=== PATIENT | female | born 1970 | race Caucasian/White ===

== ENCOUNTER 2016-03-18 15:28 | Emergency (ER) | payer OTHER ==
[~2016-03-18] VITALS: Ht 160 cm; Wt 54.1 kg
[~2016-03-18 15:28] MED LIST: ALBUAER19 INH
[2016-03-18 15:46] VITALS: TEMP 36.9; Ht 160 cm; Wt 54.1 kg
[2016-03-18] MEDS ORDERED: PROPARACAINE HCL 0.5% OP SOLN 15 ML BTL ONE (15:52)
[2016-03-18] MEDS ORDERED: HYDR-5688 PO (16:37)
[2016-03-18] MEDS ORDERED: CIPR0.3S OPB (16:37)
[2016-03-18] MEDS ORDERED: AMOX875T PO (16:37)
[2016-03-18 17:03] VITALS: BP 97/48; PULSE 80; O2SAT 95
--- NOTE | 2016-03-18 19:18 | EMERGENCY ROOM VISIT NOTE ---
History First contact with patient: 16:19 Chief Complaint: EYE ASSESSMENT Stated Complaint: EYES SWOLLEN History of Present Illness The patient is a 45 year old female who presents to the Emergency Room with complaints of pink eye that started approximately 48-72 hours ago. The patient reports that she developed redness and purulent drainage from the right eye. It then spread to the left eye. She was seen at [facility], and was told that her infection was likely viral. No antibiotic eyedrops were prescribed. The patient reports that she has been applying cool compresses or further relief, but now reports significant photophobia and eye discomfort, left worse than right. The patient does not wear contacts. She has been taking Ativan because of anxiety related to her pain. She has taken Tylenol as well without relief. She denies having any additional pain medications at home. She rates her discomfort a 3 out of 10. Patient also denies any recent upper respiratory infection, including sinus congestion, runny nose, sore throat or cough. She also denies contact with anyone else with similar symptoms. Review of Systems 10 system review was performed and was negative except for pertinent positives and negatives as indicated in history of present illness Past Medical/Surgical History Medical Problems: (1) Asthma (2) Back pain (3) Bronchitis (4) Migraine (5) Pneumonia Surgical Problems: (1) H/O: (2) H/O: hysterectomy Family History Diabetes mellitus FHx: gallbladder disease Social History Smoking Status: Current Every Day Smoker Alcohol Use: occasionally Drug Use: none Marital Status: Housing Status: lives alone Occupation Status: employed Current/Historical Medications Scheduled Amitriptyline Hcl (Elavil), 50 MG PO HS Amoxicillin & Pot Clavulanate (Augmentin 875-125 mg), 1 TAB PO BID Ciprofloxacin Hcl (Ophth) (Ciloxan Oph), 2 DROP OPB Q4H Citalopram Hydrobromide (Celexa), 10 MG PO DAILY Montelukast Sodium (Singulair), 10 MG PO QAM Topiramate (Topamax), 100 MG PO BID Scheduled PRN Albuterol Inhaler (Ventolin Inhaler), 2 PUFFS INH UD PRN for Asthma Symptoms Cetirizine (Zyrtec), 10 MG PO DAILY PRN for Allergies Clonazepam (Klonopin), 1 MG PO DAILY PRN for Anxiety Diphenhydramine Hcl (Benadryl Allergy), 25-50 MG PO HS PRN for Allergies Hydrocodone/Acetaminophen 5MG/325MG (Fincastle 5MG/325MG), 1-2 TABLET PO Q4H PRN for Pain Ibuprofen (Advil), 400 MG PO BID PRN for PRN Ranitidine (Zantac), 300 MG PO HS PRN for Indigestion Rizatriptan Benzoate (Maxalt), 10 MG PO UD PRN for Headache Allergies Coded Allergies: Shellfish (Unverified Allergy, Severe, SWELLING THROAT AND EYES AND HIVES , 03/18/16) Pseudoephedrine (Verified Allergy, Intermediate, rash, 03/18/16) Physical Exam Vital Signs Date Time Temp Pulse Resp B/P Pulse Ox O2 Delivery O2 Flow Rate FiO2 03/18/16 17:03 80 16 97/48 95 Room Air 03/18/16 15:46 36.9 106 20 99/50 100 Room Air Right Eye Acuity: >20/200 uncorrected Left Eye Acuity: >20/200 uncorrected Physical Exam CONSTITUTIONAL: Healthy and well nourished. Alert and oriented X 3 with positive affect. HEENT: Normocephalic, atraumatic. Pupils equal, round and reactive. Patient has mild periorbital erythema. EOMs do not cause any significant discomfort after Alcaine drops were instilled into the eye. She has mild bilateral mucopurulent drainage from the eyes. Palpebral conjunctiva are injected. Ears and nares are clear. OROPHARYNX: No posterior pharyngeal erythema or tonsillar hypertrophy. NECK: Full active range of motion without discomfort. RESPIRATORY: Clear to auscultation bilaterally with no wheezing, crackles, rhonchi or stridor. CARDIOVASCULAR: Regular rate and rhythm with no murmurs, rubs or gallops. INTEGUMENTARY: No rash or other significant dermatologic conditions noted. NEUROLOGIC: Cranial nerves II-XII grossly intact. No focal neurologic deficits noted. Medical Decision & Procedures Medications Administered Medications (Trade) Dose Ordered Sig/Tremayne Route Start Time Stop Time Status Last Admin Dose Admin Proparacaine HCl (Alcaine 0.5% Oph Soln) 225 drops STK-MED ONCE .ROUTE 03/18/16 15:52 03/18/16 15:53 DC 03/18/16 15:52 225 DROPS Procedure The patient could not tolerate slit lamp exam. 2 drops of Alcaine were instilled into each eye with good relief. I did use a fluorescein strip and black light, and did not notice any corneal abrasions, lesions or ulcers. ED Course Patient history and physical exam were performed. Nurse's notes were reviewed. The patient reports that her vision is blurry because of all the drainage from her eyes. 2 drops of Alcaine were instilled into both eyes with almost complete resolution of her pain, except for minimal persistent left eye discomfort with extraocular movements. The patient could not tolerate slit lamp exam because of photophobia. I was able to adequately evaluate the eye using fluorescein dye and penlight with a cobalt filter, showing no significant corneal involvement. The patient was provided prescriptions for Ciloxan and Augmentin. She also requested additional pain medication. The patient reports that she does not have any medications at home; however, review of the [place] Prescription Drug Monitoring Program shows that the patient received a prescription for #30 Fincastle on 03/07/16, prescribed by Dr. Weaver. I did ask the patient about this prescription, and she reports that she has already taken this medication for history of migraines. The patient was instructed that she must be forthcoming with any future visits. She will be provided a prescription for Fincastle, dispensed #15 with no refills. She was instructed to follow-up with Dr. 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 The patient was happy with plan of care, and denied any pain at the conclusion of my exam. Medical Decision Patient presents with complaint of bilateral eye drainage and conjunctivitis. At this point, I do not suspect periorbital cellulitis. She did have some mild discomfort with left extraocular movement. She has no significant periorbital edema or erythema. She could potentially have early preseptal cellulitis, therefore oral antibiotics were also provided. [place] Drug Monitoring Program Search Results: patient reviewed within database, see additional documentation Impression Primary Impression: Acute conjunctivitis, bilateral Departure Information Dispostion Home / Self-Care Prescriptions Hydrocodone/Acetaminophen 5MG/325MG (Fincastle 5MG/325MG) Tab 1-2 TABLET PO Q4H Y for Pain, #15 TAB For Initial Treatment Prov: Jl Whatley PA 03/18/16 Ciprofloxacin Hcl (Ophth) (CILOXAN OPH) 0.3 % Anila 2 DROP OPB Q4H for 7 Days, #1 BTL Prov: Jl Whatley PA 03/18/16 Amoxicillin & Pot Clavulanate (Augmentin 875-125 mg) 1 Tab Tab 1 TAB PO BID for 7 Days, #14 TAB Prov: Jl Whatley PA 03/18/16 Referrals Cal Alcocer MD Forms HOME CARE DOCUMENTATION FORM, IMPORTANT VISIT INFORMATION Patient Instructions A Signature Page, [facility] Additional Instructions Apply Ciloxan 0.3%, 2 drops every 4 hours in each eye for 7 days total. Take Augmentin twice daily as prescribed for 7 days total. Intermittently apply moist heat to both eyes to help promote tear production. Ibuprofen 600 mg every 6 hours. Fincastle as prescribed and as needed for worse pain. Follow-up with Dr. Alcocer, shopper insights manager, if symptoms are not significantly improving within the next 36-48 hours. FOR WORK: Please excuse from work Friday through Friday, 03/18-07/01.
== END 2016-03-18 17:06 | disposition home or self-care (01) ==
LOC: C.EDB 15:30 → C.EDD 17:06
DX: H10.33 Unspecified acute conjunctivitis, bilateral (principal); F17.210 Nicotine dependence, cigarettes, uncomplicated; Z79.899 Other long term (current) drug therapy

== ENCOUNTER 2017-02-23 14:38 | Emergency (ER) | payer OTHER ==
[2017-02-23] VITALS (12 sets, daily range): BP systolic 96–111; BP diastolic 46–69; PULSE 77–91; TEMP 36.8; O2SAT 99–100; Ht 157.5 cm; Wt 58.3 kg
[~2017-02-23] VITALS: Ht 157.5 cm; Wt 58.3 kg
[2017-02-23] MEDS ORDERED: AMIT25TA9 PO (14:55)
[2017-02-23] MEDS ORDERED: TOPI100T20 PO (14:55)
[2017-02-23] MEDS ORDERED: KETOROLAC TROMETHAMINE 30 MG/ML VIAL IV STA (15:00)
[2017-02-23] MEDS ORDERED: CYCLOBENZAPRINE HCL 10 MG TAB PO STA (15:05)
--- NOTE | 2017-02-23 15:05 | EMERGENCY ROOM VISIT NOTE ---
History First contact with patient: 14:51 Chief Complaint: FACIAL PAIN/INJURY Stated Complaint: JAW LOCKS UP,MIGRAINE History of Present Illness The patient is a 46 year old female who presents to the Emergency Room via private vehicle with complaints of "jaw locks up, migraine". The patient states that she has a history of receiving Botox injections for her chronic migraines. She last received the injections in the forehead, shinto region in the occipital region 2 weeks ago. She was feeling well however she notes that at times her job will click right more than left. She states that over the past day now the right jaw has been walking to her mouth to a fully open position. It is quite painful causing her migraines to worsen. She rates the overall pain as an 8/10. She is not taking anything for the pain thus far. She does have associated chills feeling for the past few days but no fevers. She denies any redness over the injection sites. She does have a history of TMJ. Review of Systems A complete 10-point Review of Systems was discussed with the patient, with pertinent positives and negatives listed in the History of Present Illness. All remaining Review of Systems questions can be considered negative unless otherwise specified. Past Medical/Surgical History Medical Problems: (1) Asthma (2) Back pain (3) Bronchitis (4) Migraine (5) Pneumonia Surgical Problems: (1) H/O: (2) H/O: hysterectomy Family History Diabetes mellitus FHx: gallbladder disease Social History Smoking Status: Never Smoker Alcohol Use: occasionally Drug Use: none Marital Status: Housing Status: lives alone Occupation Status: employed Current/Historical Medications Scheduled Albuterol Hfa (Ventolin Hfa), 2 PUFFS INH Q6H Amitriptyline Hcl (Elavil), 50 MG PO HS Citalopram Hydrobromide (Celexa), 10 MG PO DAILY Montelukast Sodium (Singulair), 10 MG PO QAM Topiramate (Topamax), 100 MG PO BID Scheduled PRN Cetirizine (Zyrtec), 10 MG PO DAILY PRN for Allergies Clonazepam (Klonopin), 1 MG PO DAILY PRN for Anxiety Diphenhydramine Hcl (Benadryl Allergy), 25-50 MG PO HS PRN for Allergies Ibuprofen (Advil), 400 MG PO BID PRN for PRN Oxycodone Ir (Roxicodone Ir), 1-2 TAB PO Q4H PRN for Pain Ranitidine (Zantac), 300 MG PO HS PRN for Indigestion Rizatriptan Benzoate (Maxalt), 10 MG PO UD PRN for Headache Physical Exam Vital Signs Date Time Temp Pulse Resp B/P (MAP) Pulse Ox O2 Delivery O2 Flow Rate FiO2 02/23/17 18:27 79 16 104/46 99 Room Air 02/23/17 18:00 85 16 105/59 99 Room Air 02/23/17 17:45 77 16 99/55 99 Room Air 02/23/17 17:40 78 20 104/57 99 Room Air 02/23/17 17:35 91 22 99/58 100 Room Air 02/23/17 17:30 82 16 103/54 100 Room Air 02/23/17 17:26 80 16 103/53 100 Room Air 02/23/17 17:22 82 18 101/51 100 Room Air 02/23/17 17:18 83 10 96/55 100 Room Air 02/23/17 17:14 84 22 107/69 100 Nasal Cannula 4.0 02/23/17 17:06 82 16 116/61 100 Nasal Cannula 4.0 02/23/17 17:05 81 22 111/61 100 02/23/17 17:03 84 02/23/17 16:01 101 20 145/83 100 Room Air 02/23/17 14:46 36.8 99 18 126/76 99 Room Air Physical Exam VITAL SIGNS - Vital signs and nursing notes were reviewed. Stable, GENERAL -46-year-old female appearing her stated age who is in no acute distress. Communicates well with provider and answers questions appropriately. SKIN - Without rashes. No petechial rashes. The skin overlying the regions where she received the Botox injections is unremarkable. The TMJ region is unremarkable to inspection. HEAD - NC/AT. EYES - Sclera anicteric EARS - No deformities of external structures noted on gross examination bilaterally. NOSE - Midline and without cyanosis. No epistaxis or purulent drainage noted. MOUTH/OROPHARYNX - Without perioral cyanosis. NECK - Neck with FROM. Supple to palpation. No lymphadenopathy noted. No nuchal rigidity. LUNGS - Chest wall symmetric without accessory muscle use, intercostals retractions, or central cyanosis. Normal vesicular breath sounds CTA B/L. No wheezes, rales, or rhonchi appreciated. CARDIAC - RRR with S1/S2. No murmur, rubs, or gallops appreciated. NEUROLOGIC - Cranial nerves II through XII grossly intact. Sensory intact to light touch throughout. Patellar reflexes +2/4. PSYCH - A&O, and cooperates fully with examiner. Pt is very pleasant and interacts well with examiner. Medical Decision & Procedures Laboratory Results 02/23/17 15:20 Red Blood Count 4.53, Mean Corpuscular Volume 96.9, Mean Corpuscular Hemoglobin 34.0, Mean Corpuscular Hemoglobin Concent 35.1, Mean Platelet Volume 11.3, Neutrophils (%) (Auto) 77.4, Lymphocytes (%) (Auto) 14.2, Monocytes (%) (Auto) 7.5, Eosinophils (%) (Auto) 0.6, Basophils (%) (Auto) 0.1, Neutrophils # (Auto) 6.30, Lymphocytes # (Auto) 1.16, Monocytes # (Auto) 0.61, Eosinophils # (Auto) 0.05, Basophils # (Auto) 0.01 02/23/17 15:20 Test 02/23/17 15:20 White Blood Count 8.15 K/uL (4.8-10.8) Red Blood Count 4.53 M/uL (4.2-5.4) Hemoglobin 15.4 g/dL (12.0-16.0) Hematocrit 43.9 % (37-47) Mean Corpuscular Volume 96.9 fL (80-100) Mean Corpuscular Hemoglobin 34.0 pg (25-34) Mean Corpuscular Hemoglobin Concent 35.1 g/dl (32-36) Platelet Count 175 K/uL (130-400) Mean Platelet Volume 11.3 fL (7.4-10.4) Neutrophils (%) (Auto) 77.4 % Lymphocytes (%) (Auto) 14.2 % Monocytes (%) (Auto) 7.5 % Eosinophils (%) (Auto) 0.6 % Basophils (%) (Auto) 0.1 % Neutrophils # (Auto) 6.30 K/uL (1.4-6.5) Lymphocytes # (Auto) 1.16 K/uL (1.2-3.4) Monocytes # (Auto) 0.61 K/uL (0.11-0.59) Eosinophils # (Auto) 0.05 K/uL (0-0.5) Basophils # (Auto) 0.01 K/uL (0-0.2) RDW Standard Deviation 44.1 fL (36.4-46.3) RDW Coefficient of Variation 12.5 % (11.5-14.5) Immature Granulocyte % (Auto) 0.2 % Immature Granulocyte # (Auto) 0.02 K/uL (0.00-0.02) Anion Gap 9.0 mmol/L (3-11) Est Creatinine Clear Calc Drug Dose 61.1 ml/min Estimated GFR () 86.6 Estimated GFR (Non- 74.7 BUN/Creatinine Ratio 8.8 (10-20) Calcium Level 9.1 mg/dl (8.5-10.1) Medications Administered Medications (Trade) Dose Ordered Sig/Tremayne Route Start Time Stop Time Status Last Admin Dose Admin Ketorolac Tromethamine (Toradol Inj) 30 mg NOW STAT IV 02/23/17 15:00 02/23/17 15:02 OH 02/23/17 15:16 30 MG Cyclobenzaprine HCl (Flexeril Tab) 10 mg NOW STAT PO 02/23/17 15:05 02/23/17 15:06 DC 02/23/17 15:15 10 MG Hydromorphone HCl (Dilaudid Inj) 0.5 mg NOW STAT IV 02/23/17 15:49 02/23/17 15:50 OH 02/23/17 16:00 0.5 MG Lorazepam 0.5 mg/ Syringe 0.5 ml @ 0.5 mls/min NOW STAT IV 02/23/17 15:49 02/23/17 15:50 DC 02/23/17 16:00 0.5 MLS/MIN Lorazepam (Ativan Inj) 1.5 mg NOW STAT IV 02/23/17 16:08 02/23/17 16:09 OH 02/23/17 16:11 1.5 MG Fentanyl Citrate (Fentanyl Inj) 50 mcg NOW STAT IV 02/23/17 16:28 02/23/17 16:29 DC 02/23/17 16:56 50 MCG Propofol (Diprivan Iv Emulsion 20ml Vial) 100 mg NOW STAT IV 02/23/17 16:44 02/23/17 16:45 DC 02/23/17 17:15 75 MG Oxycodone HCl (Roxicodone Immediate Rel 5MG Home Pack) 1 homepack UD STAT PO 02/23/17 18:26 02/23/17 18:27 DC 02/23/17 18:32 1 HOMEPACK Medical Decision Patient was seen and evaluated as above. She presents to us today with complaints of a migraine and her jaw locking. She has a history of TMJ. She did receive Botox injections of which I do not believe are contributory to today 's ailment. IV access is initiated, and the above workup was performed. She was given Toradol as well as Flexeril initially and then on exam she developed a right mandibular dislocation at the TMJ. This was reduced without incident. I was then called the patient room and the patient had yawned causing bilateral dislocation of the TMJ. She was in pain. She was given pain medicine and Ativan without relief. Attempts were made at reduction. More Ativan was given without success. Benefits versus risk of sedation was discussed and the decision was made to sedate. I was able to successfully reduce the jaw with sedation without incident. The patient essentially reduced herself once she was sedated enough to allow the muscles to relax in the jaw. She then awoke without difficulty. An Damien bandage was applied around the jaw to help with prevention of future reductions until she can follow with an oral maxillary facial surgeon. She was given oxycodone immediate release for pain at home and phone numbers for oral maxillofacial. No red flags in the [place] drug monitoring system. No emergent ailment identified on CBC or metabolic panel. She was educated upon management, educated upon worrisome symptoms in which to return, had questions answered prior to discharge, and was discharged home in good condition. In evaluation treatment this patient the following differential diagnoses were entertained: TMJ, dislocation, infection, among others. Impression Primary Impression: TMJ (dislocation of temporomandibular joint) Departure Information Dispostion Home / Self-Care Condition GOOD Prescriptions Oxycodone Ir (Roxicodone Ir) 5 Mg Tab 1-2 TAB PO Q4H Y for Pain, #15 TAB For Initial Treatment Prov: Jose Daniel Duran PA-C 02/23/17 Referrals Elliot Ceballos M.D. (PCP) Brian Villalobos D.D.S. Haney, Harold J., D.M.D. Patient Instructions ED TMJ Syndrome, My [facility] Additional Instructions You have been treated in the Emergency Department for a Headache and jaw pain. You have received pain medicine in the emergency department which impairs your ability to operate a vehicle. It is illegal for you to drive after receiving these medicines. You have been prescribed Oxy IR to be used for pain control. PLEASE DO NOT TAKE ANOTHER DOSE UNTIL TOMORROW YOU HAVE HAD SEVERAL SEDATING MEDICINES HERE. This is a narcotic medication. You cannot drive or consume alcohol while on this medicine. This medicine should only be used for pain that cannot be controlled with [id number] pain medicines. For pain control, you can use the following [id number] medicines (if >12 yo): - Regular strength (325mg/tab) Tylenol (acetaminophen) 2 tabs every 4-6 hours as needed. Do not exceed 12 tablets in a 24 hour period. Avoid taking more than 3 grams (3000 mg) of Tylenol per day. This includes any other sources of acetaminophen you may take on a regular basis. - Regular strength (200 mg/tab) Advil (ibuprofen) 1-2 tabs every 4-6 hours as needed. Do not exceed a dose of 3200 mg per day. You should relax in a quiet, dark place for the rest of the day. Avoid any possible triggers including: cigarette smoke, caffeine, nicotine, chocolate, wine, beer, loud noises or music, or bright lights. You should schedule a follow-up appointment with an Oral surgeon. Dr. Osei or Wilfredo Clear liquid diet (through straws) for 1 week. Return to the Emergency Department if your current symptoms worsen despite treatment course outlined above, or if you develop any of the following symptoms : intractable pain despite aforementioned treatment course, visual disturbances , loss of vision, unilateral weakness or facial drooping, slurring of speech, loss of coordination, or loss of consciousness.
[2017-02-23] MEDS ORDERED: DIPH25CA65 PO (15:10)
[2017-02-23] MEDS ORDERED: CETI10TA84 PO (15:10)
[2017-02-23 15:37] LABS: MEAN PLATELET VOLUME 11.3 fL (7.4-10.4)
[2017-02-23] MEDS ORDERED: VNTHFA/IN INH (15:40)
[2017-02-23 15:46] LABS: BASO % 0.1 %; BASO ABS # 0.01 K/uL (0-0.2); COMPLETE YES; EOS % 0.6 %; HEMATOCRIT 43.9 % (37-47); IG% 0.2 %; LYMPH % 14.2 %; LYMPH ABS # 1.16 K/uL (1.2-3.4); MEAN CELL VOLUME 96.9 fL (80-100); MEAN CORPUSCULAR HGB CONC 35.1 g/dl (32-36); MONO % 7.5 %; NEUT % 77.4 %; PLATELET COUNT 175 K/uL (130-400); RED BLOOD COUNT 4.53 M/uL (4.2-5.4); WHITE BLOOD COUNT 8.15 K/uL (4.8-10.8)
[2017-02-23] MEDS ORDERED: LORAZEPAM INJ 0.5 MG in SYRINGE 0.25 ML IV STA (15:49)
[2017-02-23] MEDS ORDERED: HYDROmorphone INJ 0.5 MG/0.5 ML SYR IV STA (15:49)
[2017-02-23 15:50] LABS: BLOOD UREA NITROGEN 8 mg/dl (7-18); BUN/CREATININE RATIO 8.8 (10-20); CALCIUM 9.1 mg/dl (8.5-10.1); CARBON DIOXIDE 24 mmol/L (21-32); CHLORIDE 106 mmol/L (98-107); CREATININE 0.93 mg/dl (0.60-1.20); GLUCOSE 96 mg/dl (70-99); SODIUM 139 mmol/L (136-145)
[2017-02-23] MEDS ORDERED: LORAZEPAM 2 MG/ML 1 ML VIAL ONE ×2 (15:55→16:04)
[2017-02-23] MEDS ORDERED: LORAZEPAM 2 MG/ML 1 ML VIAL IV STA (16:08)
[2017-02-23] MEDS ORDERED: CITA10TA8 PO (16:14)
[2017-02-23] MEDS ORDERED: IBUP-1050 PO (16:14)
[2017-02-23] MEDS ORDERED: FENTANYL CITRATE INJ 50 MCG/1 ML 2 ML VIAL IV STA (16:28)
[2017-02-23] MEDS ORDERED: FENTANYL CITRATE INJ 50 MCG/1 ML 2 ML VIAL ONE (16:31)
[2017-02-23] MEDS ORDERED: PROPOFOL IV EMULSION 10 MG/ML 20 ML VIAL IV STA (16:44)
--- NOTE | 2017-02-23 16:47 | EMERGENCY ROOM VISIT NOTE ---
Pre-Mod Sedation Assessment General Date of Moderate Sedation: Feb 23, 2017. Vital Signs: Vital Signs Past 12 Hours Date Time Temp Pulse Resp B/P (MAP) Pulse Ox O2 Delivery O2 Flow Rate FiO2 02/23/17 16:01 101 20 145/83 100 Room Air 02/23/17 14:46 36.8 99 18 126/76 99 Room Air Review Cardiovascular: regular rate, rhythm, no edema Abdomen: normal bowel sounds, non tender, soft Lungs: lungs clear, normal breath sounds Airway Class: I Pre-Sedation Airway Assessment Oral Cavity: WNL Able to Visualize Vocal Cords: Yes Short Thick Neck: No Hx of Sleep Apnea: No Smoking Status: Current Every Day Smoker Mallampati Classification: Class I (Sft palate,uvula,fauces,pillar) ASA Classification: Class I Procedure Planning Contraindications-for Mod Sed: None Yes Notes The planned sedation has been discussed with the patient and consent obtained. I have identified the patient, determined the appropriateness of sedation and have assessed the patient immediately prior to the procedure. All medicine(s) and interventions are by my order.
--- NOTE | 2017-02-23 16:47 | EMERGENCY ROOM VISIT NOTE ---
Post-Moderate Sedation Plan General Date of Moderate Sedation Feb 23, 2017. Vital Signs: Vital Signs Past 12 Hours Date Time Temp Pulse Resp B/P (MAP) Pulse Ox O2 Delivery O2 Flow Rate FiO2 02/23/17 16:01 101 20 145/83 100 Room Air 02/23/17 14:46 36.8 99 18 126/76 99 Room Air Review - Discharge Plan Post Moderate Sedation Plan: On clinical assessment, the patient appears to have tolerated the conscious sedation without complications. Patient is recovering as anticipated. Patient will continue to be monitored by nursing and may be discharged when conscious sedation discharge criteria are met.
[2017-02-23] MEDS ORDERED: OXYC1TAB3 PO (18:16)
[2017-02-23] MEDS ORDERED: OXYCODONE IR HOME PACK PO STA (18:26)
--- NOTE | 2017-02-23 19:45 | EMERGENCY ROOM VISIT NOTE ---
ED Visit Note First contact with patient: 14:51 I have personally seen and evaluated the patient with the PA. I agree with the diagnosis and management decisions and have been personally involved in the case. Upon my evaluation the patient, she has a mandibular dislocation at the bilateral TMJs. Patient was given IV Ativan in an attempt at reduction was performed. Patient was unable to relax to tolerate the procedure. We did discuss the risks and benefits of conscious sedation. She was consented. She had nothing by mouth today except for black coffee about 2 and half hours ago. Patient was given IV conscious sedation was performed. The reduction was performed without incident. Please see Jose Daniel Duran PA-C's notes for further details of the history, physical and visit.
[2017-02-23] MEDS ORDERED: RIZA10TA18 PO (19:46)
[2017-02-23] MEDS ORDERED: MONT1TAB3 PO (20:47)
[2017-02-23] MEDS ORDERED: CLON1TAB3 PO (20:47)
[2017-02-23] MEDS ORDERED: RANI300T2 PO (20:47)
== END 2017-02-23 18:49 | disposition home or self-care (01) ==
LOC: C.EDB 14:38 → C.EDA 18:49
DX: M26.603 Bilateral temporomandibular joint disorder, unspecified (principal); G43.909 Migraine, unspecified, not intractable, without status migrainosus; J45.909 Unspecified asthma, uncomplicated; Z87.01 Personal history of pneumonia (recurrent); Z83.3 Family history of diabetes mellitus; Z83.79 Family history of other diseases of the digestive system; Z79.899 Other long term (current) drug therapy

== ENCOUNTER 2017-08-02 15:32 | Emergency (ER) | payer OTHER ==
[~2017-08-02] VITALS: Ht 154.9 cm; Wt 53.6 kg
[~2017-08-02 15:32] MED LIST changes: -ALBUAER19 INH; +AMIT25TA9 PO; +CETI10TA84 PO; +CITA10TA8 PO; +DIPH25CA65 PO; +MONT1TAB3 PO; +OXYC1TAB3 PO; +TOPI100T20 PO
[2017-08-02 15:36] VITALS: TEMP 36.6; Ht 154.9 cm; Wt 53.6 kg
[2017-08-02] MEDS ORDERED: VNTHFA/IN INH (15:40)
[2017-08-02] MEDS ORDERED: DiphenhydrAMINE HCL 50 MG/ML VIAL IV STA (15:50)
[2017-08-02] MEDS ORDERED: PROCHLORPERAZINE 5 MG/ML 2 ML VIAL IV STA (15:50)
[2017-08-02] MEDS ORDERED: SODIUM CHLORIDE 0.9% 1000ML 1,000 ML IV STA (15:50)
[2017-08-02] MEDS ORDERED: KETOROLAC TROMETHAMINE 30 MG/ML VIAL IV STA (15:50)
[2017-08-02] MEDS ORDERED: IBUP-1050 PO (16:14)
[2017-08-02 16:27] VITALS: O2SAT 98
[2017-08-02] MEDS ORDERED: METHYLPREDNISOLONE 125 MG VIAL IV STA (16:56)
[2017-08-02] MEDS ORDERED: AMIT50TA3 PO (17:10)
[2017-08-02] MEDS ORDERED: CITA20TA4 PO (17:10)
[2017-08-02] MEDS ORDERED: SNG10 PO (17:10)
[2017-08-02] MEDS ORDERED: TOPI100T20 PO (17:10)
[2017-08-02] MEDS ORDERED: EPP3/2 IM (17:10)
[2017-08-02 18:09] VITALS: BP 116/74; PULSE 77; O2SAT 95
[2017-08-02] MEDS ORDERED: RIZA10TA18 PO (19:46)
[2017-08-02] MEDS ORDERED: RANI300T2 PO (20:47)
[2017-08-02] MEDS ORDERED: CLON1TAB3 PO (20:47)
--- NOTE | 2017-08-02 21:40 | EMERGENCY ROOM VISIT NOTE ---
History Report prepared by Anilibtram: Wanda Arguelles Under the Supervision of: Dr. Michael Espinoza D.O. First contact with patient: 15:39 Chief Complaint: HEADACHE Stated Complaint: MIGRAINE History of Present Illness The patient is a 46 year old female who presents to the Emergency Room with complaints of a persistent migraine headache since last night. She rates her pain as an 8/10 in severity. Light and noise worsen her pain. Her typical migraine medications have provided minimal relief. She admits to a history of migraine headaches and receives monthly Botox injections. Her Neurologist is Dr. Weaver with [facility]. She notes her current pain feels like her typical migraine headache. Headache is located along the right side of her head. It is throbbing and sharp and she notes this is typical. She was nauseous and vomited this morning. Pt denies change in vision, fevers, chest pain, shortness of breath, diarrhea, pain with urination, and melena. Source of History: patient Onset: last night Position: head Symptom Intensity: 8/10 Timing: other (persistent) Modifying Factors (Worsening): other (light, noise) Modifying Factors (Relieving): other (migraine medications) Associated Symptoms: + nausea, + vomiting, No fevers, No chest pain, No SOB , No melena, No diarrhea, No urinary symptoms Review of Systems See HPI for pertinent positives & negatives. A total of 10 systems reviewed and were otherwise negative. Past Medical & Surgical Medical Problems: (1) Asthma (2) Back pain (3) Bronchitis (4) Migraine (5) Pneumonia Surgical Problems: (1) H/O: (2) H/O: hysterectomy Family History Diabetes mellitus FHx: gallbladder disease Social History Smoking Status: Current Some Day Smoker Alcohol Use: occasionally Drug Use: none Marital Status: Housing Status: lives alone Occupation Status: employed Current/Historical Medications Scheduled Amitriptyline Hcl (Amitriptyline Hcl), 50 MG PO HS Citalopram Hydrobromide (Citalopram Hydrobromide), 20 MG PO DAILY Montelukast Sod (Montelukast Sodium), 10 MG PO DAILY Topiramate (Topamax), 100 MG PO QAM Topiramate (Topamax), 200 MG PO HS Scheduled PRN Albuterol Hfa (Ventolin Hfa), 2 PUFFS INH Q4H PRN for Wheezing Cetirizine (Zyrtec), 10 MG PO DAILY PRN for Allergy Symptoms Clonazepam (Klonopin), 1 MG PO DAILY PRN for Anxiety Diphenhydramine Hcl (Benadryl Allergy), 25-50 MG PO HS PRN for Allergic Reaction Epinephrine (Epipen), 0.3 MG IM UD PRN for Allergic Reaction Ibuprofen (Advil), 400 MG PO UD PRN for Pain or Fever Ranitidine (Zantac), 300 MG PO HS PRN for Indigestion Rizatriptan Benzoate (Maxalt), 10 MG PO UD PRN for Headache Allergies Coded Allergies: Shellfish (Unverified Allergy, Severe, SWELLING THROAT AND EYES AND HIVES , 03/18/16) Pseudoephedrine (Verified Allergy, Intermediate, rash, 03/18/16) Physical Exam Vital Signs Date Time Temp Pulse Resp B/P (MAP) Pulse Ox O2 Delivery O2 Flow Rate FiO2 08/02/17 18:09 77 16 116/74 95 08/02/17 17:16 82 16 110/51 97 Room Air 08/02/17 16:27 98 Room Air 08/02/17 15:36 36.6 100 15 110/70 100 Room Air Physical Exam GENERAL: Sitting up in bed, alert, well appearing, well nourished, no distress, non-toxic EYE EXAM: normal conjunctiva. PERRL and EOM's grossly intact. OROPHARYNX: no exudate, no erythema, lips, buccal mucosa, and tongue normal and mucous membranes are moist NECK: supple, no nuchal rigidity, no adenopathy, non-tender LUNGS: Clear to auscultation. Normal chest wall mechanics HEART: no murmurs, S1 normal and S2 normal ABDOMEN: abdomen soft, non-tender, normo-active bowel sounds, no masses, no rebound or guarding. BACK: Back is symmetrical on inspection and there is no deformity, no midline tenderness, no CVA tenderness. SKIN: no rashes and no bruising UPPER EXTREMITIES: upper extremities are grossly normal. LOWER EXTREMITIES: No pitting edema. NEURO EXAM: Normal sensorium, cranial nerves II-XII intact, normal speech, no weakness of arms, no weakness of legs. No drift. Finger to nose intact. Gross sensation intact. Patient ambulates without difficulty. Medical Decision & Procedures Medications Administered Medications (Trade) Dose Ordered Sig/Tremayne Route Start Time Stop Time Status Last Admin Dose Admin Prochlorperazine Edisylate (Compazine Inj) 10 mg NOW STAT IV 08/02/17 15:50 08/02/17 15:51 DC 08/02/17 16:12 10 MG Diphenhydramine HCl (Benadryl Inj) 50 mg NOW STAT IV 08/02/17 15:50 08/02/17 15:51 DC 08/02/17 16:12 50 MG Ketorolac Tromethamine (Toradol Inj) 30 mg NOW STAT IV 08/02/17 15:50 08/02/17 15:51 DC 08/02/17 16:12 30 MG Sodium Chloride 1,000 ml @ 999 mls/hr Q1H1M STAT IV 08/02/17 15:50 08/02/17 16:50 DC 08/02/17 16:09 999 MLS/HR Methylprednisolone Sodium Succinate (Solu-Medrol IV) 125 mg NOW STAT IV 08/02/17 16:56 08/02/17 16:57 DC 08/02/17 17:16 125 MG ED Course ED COURSE: Vital signs were reviewed and showed the patient is tachycardic. The patients medical record was reviewed The above diagnostic studies were performed and reviewed. ED treatments and interventions as stated above. 1541: The patient was evaluated in room B2. A complete history and physical examination was performed. 1550: NSS 1000 ml @ 999 mls/hr IV, Toradol 30 mg IV, Benadryl 50 mg IV, Compazine 10 mg IV. 1654: I reevaluated the patient. She was asleep but awoke when I came in. She is feeling slightly better. 1656: Solu-Medrol 125 mg IV. 1716: Upon reevaluation, the patient is feeling well and is ready to go home. I discussed my findings with the patient and she understands and agrees with the treatment plan. Based on the patients age, coexisting illnesses, exam and lab findings the decision to treat as an outpatient was made. The patient remained stable while under my care. The patient appeared well at the time of discharge. Medical Decision Differential Diagnosis includes but is not limited to headache, tension headache , cluster headache, migraine, subarachnoid hemorrhage, meningitis, mass, central venous thrombus, concussion, trauma and epidural/subdural hemorrhage. Patient is a 46-year-old female presents the ER for headache. She notes that this feels like her typical migraines. It is unchanged in any way. She notes she did have a significant decline in the recurrence of her migraines after receiving Botox injections. She is neurologically intact on my exam. No fevers. No signs of meningitis or encephalitis. Nothing to suggest subarachnoid hemorrhage as this is consistent with her previous migraines. Patient was given IV fluids, Benadryl, Compazine, Toradol and steroids. She did feel slightly better. She was sleeping on repeat evaluation. She was discharged follow-up with PCP as an outpatient. Discussed with Pt concerning signs and symptoms to watch out for. Pt was instructed to follow up with their PCP and discussed with the patient their option to return to the ED at anytime for persistent or worsening symptoms. The appropriate anticipatory guidance and out-patient management, including indications for return to the emergency department, were explained at length to the patient and understood. Medication Reconcilliation Current Medication List: was personally reviewed by me Blood Pressure Screening Patient's blood pressure: Low blood pressure Impression Primary Impression: Headache Scribe Attestation The scribe's documentation has been prepared under my direction and personally reviewed by me in its entirety. I confirm that the note above accurately reflects all work, treatment, procedures, and medical decision making performed by me. Departure Information Dispostion Home / Self-Care Referrals Elliot Ceballos M.D. (PCP) Patient Instructions Headache Pain, My [facility] Additional Instructions Please follow up with your primary care doctor with in the next 24 hours. Any worsening of your symptoms, please return to the ED immediately. This includes any fevers greater than 100.4, worsening pain, chest pain, weakness or numbness in the arms or legs, shortness breath, persistent nausea, vomiting, unable to eat or drink, or any other concerning signs or symptoms from your standpoint. You were given medications during this visit that will inhibit your ability to drive, operate machinery and work. Please do NOT drive, operate machinery, drink alcohol or work for the next 12hrs. Problem Qualifiers Primary Impression: Headache Headache type: unspecified Headache chronicity pattern: acute headache Intractability: not intractable Qualified Codes: R51 - Headache
== END 2017-08-02 18:09 | disposition home or self-care (01) ==
LOC: C.EDB 15:33
DX: R51 Headache (principal); J45.909 Unspecified asthma, uncomplicated; F17.210 Nicotine dependence, cigarettes, uncomplicated; Z79.899 Other long term (current) drug therapy; Z91.013 Allergy to seafood; Z88.8 Allergy status to other drugs, medicaments and biological substances

== ENCOUNTER 2020-10-09 05:52 | Observation (INO) ==
--- NOTE | 2020-10-09 06:44 | Emergency Department Note ---
Impression & Plan Chest pain, Syncope, Shortness of breath, Abnormal EKG ED Provider Note NAME: ORLANDO NAJERA AGE: 49 SEX: F : 1970 ARRIVES VIA: Walk-In INFORMANT: Patient ED PROVIDER(S): Michael Espinoza DO CHIEF COMPLAINT: Chest pain HPI: Patient is a 49-year-old female who presents the ER for chest pain. She has been getting this pain off and on for the past 6 months. She notes that generally starts in the middle of her chest and will go to her left arm. She has associated shortness of breath with this. She has followed up with cardiology and had a stress test and a Holter monitor per her report. She was placed on propanolol. She denies any belly pain, nausea, vomiting, or diarrhea. No dysuria, urgency or frequency. She notes that this chest pain previously would come with exertion and with rest. It was not tied to anything specificall y. She does have a history of heart disease in her family. She was folding laundry and got an argument with her significant other and started having chest pain. She went to walk upstairs and she passed out. She notes she woke up several seconds later. Patient notes that this started about half hour prior to arrival. Past medical history does include a negative exercise stress echo on December 2019. Patient was 0 for 7 days which showed SVT, VT as well as atrial tachycardia with variable block ROS: See above HPI for pertinent positives & negatives. A total of 10 systems reviewed and were otherwise negative. PAST MEDICAL HISTORY:See Below PAST SURGICAL HISTORY:See Below FAMILY HISTORY:See Below SOCIAL HISTORY:See Below HOME MEDICATIONS:See Below ALLERGIES:See Below VITALS:See Below PHYSICAL EXAMINATION: GENERAL: Sitting up in bed, alert, well appearing, well nourished, no distress, non-toxic EYE EXAM: normal conjunctiva. HEAD:NC/AT OROPHARYNX: no exudate, no erythema, lips, buccal mucosa, and tongue normal and mucous membranes are moist NECK: supple, no nuchal rigidity, no adenopathy, non-tender LUNGS: Clear to auscultation. Normal chest wall mechanics HEART: no murmurs, S1 normal and S2 normal ABDOMEN: abdomen soft, non-tender, normo-active bowel sounds, no masses, no tiara ound or guarding. BACK: Back is symmetrical on inspection and there is no deformity, no midline tenderness, no CVA tenderness. SKIN: no rashes and no bruising UPPER EXTREMITIES: upper extremities are grossly normal. LOWER EXTREMITIES: No pitting edema. NEURO EXAM: Normal sensorium, cranial nerves II-XII grossly intact, normal speech, no gross weakness of arms, no gross weakness of legs. MEDICAL DECISION MAKING: Patient is a 49-year-old female with a past medical history of TIAs and chest pain with work-up and [employer] system which showed stress test with a 0 monitor showing short run of VT, SVT and atrial tachycardia with variable block. Patient presents to the ER today with chest pain shortness of breath and syncopal episode.IV was established blood work was obtained. Labs show mild leukopenia at 4.6 thousand but no significant anemia. D-dimer was negative and a low risk patient will not be pursued any further. BMP with slightly elevated chloride. LFTs bilirubin was unremarkable. TSH was normal. Troponin was undetectable. UA was clean. Chest x-ray was unremarkable. Patient was given fluids as well as aspirin. She was updated bedside. EKG was unchanged from [facility]. With her history of short run of VT did discuss with hospitalist for further observation with presentation of syncope as well as chest pain and shortness of breath. Triage Nursing notes reviewed. Limited review of prior medical records performed Vital Signs: reviewed and remarkable for no significant abnormalities Differential diagnosis: Differential diagnoses includes but is not limited to acute coronary syndrome, myocardial infarction, pericarditis, pulmonary embolus, aortic dissection, pneumonia, pneumothorax, musculoskeletal, shingles, esophageal. ER treatment provided: See below Diagnostics interpreted by me: ECG: Sinus rhythm rate of 77 Normal axis No PVCs ST depressions in the inferior leads QTC 411 ST wave changes are new from 2015 Cardiac Monitoring: An order was placed for continuous cardiac monitoring. The monitor shows a rate of 70 with sinus rhythm. Laboratory studies: As stated above and show below. Imaging studies: Portable AP upright 1 view the chest was unremarkable Consultation(s): Discussed with the hospitalist from [facility] for further evaluation Procedures: none Critical Care: None Past Med/Surg History Medical History (Updated 10/09/20 @ 11:55 by Kamilla Guerin PA-C) Allergic rhinitis Anxiety Bartholin gland cyst Deviated septum Migraines Surgical History (Updated 10/09/20 @ 11:39 by Kamilla Guerin PA-C) H/O total hysterectomy History of History of endometrial ablation Hx of appendectomy Family History Mother Heart disease Diabetes Grandfather (Maternal) , age 68 due to CO Heart disease Aunt , age 51 due to CO Heart disease Uncle Heart disease Social History (Updated 10/09/20 @ 12:03 by Kamilla Guerin PA-C) Smoking Status: Former smoker Tobacco Type: E-cigarettes / Vaping Hx Alcohol Use: No Hx Substance Use: No Preferred Language: Polish Communication Ability: Effective Visual Impairment: Limited Hearing Ability: Normal Pantograph Ii Engraver Required: No Beliefs That Will Affect Care: None marital status: Current Living Situation: Significant Other Current Living Situation Comment: lives with boyfriend current occupational status: employed current occupation: customer service at [employer] Other Information That Helps Us Care for You: No Feels Safe at Home: Yes Safety Concerns: Feels Safe At This Time Assistive Devices: Glasses Allergies Allergies Allergy/AdvReac Type Severity Reaction Status Date / Time shellfish derived Allergy Severe SWELLING Verified 10/09/20 07:08 THROAT AND EYES AND HIVES pseudoephedrine Allergy Intermediate rash Verified 10/09/20 07:08 indomethacin AdvReac CAPS Verified 10/09/20 11:22 Home Meds Home Medications Medication Instructions Recorded Confirmed albuterol sulfate 90 mcg/actuation 2 puffs INH Q4H PRN gm 02/17/18 10/09/20 aerosol inhaler epinephrine 0.3 mg/0.3 mL 0.3 mg IM Q10M PRN 02/17/18 10/09/20 injection, auto-injector (EpiPen) montelukast 10 mg tablet 10 mg PO QAM 02/17/18 10/09/20 bupropion HCl 300 mg 24 hr tablet, 300 mg PO QAM 03/03/19 10/09/20 extended release (Wellbutrin XL) propranolol 10 mg tablet 10 mg PO BID 03/22/20 10/09/20 clonazepam 1 mg tablet 1 mg PO DAILY PRN 10/09/20 10/09/20 ondansetron HCl 4 mg tablet 4 mg PO Q12H PRN 10/09/20 10/09/20 trazodone 50 mg tablet 50 mg PO HS PRN 10/09/20 10/09/20 Previous Rx's Medication Instructions Recorded rizatriptan 10 mg tablet (Maxalt) 10 mg PO Q2H PRN #12 tab MDD 30 mg 04/14/20 fremanezumab-vfrm 225 mg/1.5 mL 225 mg SUBCUT MONTHLY 30 Days #1.5 09/26/20 subcutaneous syringe (Ajovy ml Syringe) Results & Data (ED) Vital Signs Vital Signs - 24 hr 10/09/20 05:54 10/09/20 06:32 10/09/20 06:34 Temperature 36.2 C L 36.8 C Temperature Source Temporal Artery Scan Oral Pulse Rate - Lying Pulse Rate - Sitting Pulse Rate - Standing Pulse Rate 89 88 Pulse Rate [Finger] 88 Pulse Rate from SpO2 Sensor Respiratory Rate 18 Blood Pressure - Lying Blood Pressure - Sitting Blood Pressure- Standing Blood Pressure 123/63 Blood Pressure [Right Arm] 119/64 Blood Pressure Mean 83 Blood Pressure Mean [Right Arm] 82 Blood Pressure Position Sitting Pulse Oximetry 100 100 100 Oxygen Delivery Method Room Air Room Air Room Air Sepsis Recent Fever Within 48 Hours No Sepsis New/Unexplained Change in Mental Status N/A Sepsis Action Taken by Nursing No Action Required 10/09/20 06:43 10/09/20 07:00 10/09/20 07:30 Temperature Temperature Source Pulse Rate - Lying 80 Pulse Rate - Sitting 92 H Pulse Rate - Standing 100 H Pulse Rate 74 71 Pulse Rate [Finger] Pulse Rate from SpO2 Sensor 75 71 Respiratory Rate 21 15 Blood Pressure - Lying 106/62 Blood Pressure - Sitting 115/60 Blood Pressure- Standing 108/69 Blood Pressure 120/55 L 109/64 Blood Pressure [Right Arm] Blood Pressure Mean 76 79 Blood Pressure Mean [Right Arm] Blood Pressure Position Pulse Oximetry 100 100 Oxygen Delivery Method Sepsis Recent Fever Within 48 Hours Sepsis New/Unexplained Change in Mental Status Sepsis Action Taken by Nursing 10/09/20 08:00 10/09/20 08:30 Temperature Temperature Source Pulse Rate - Lying Pulse Rate - Sitting Pulse Rate - Standing Pulse Rate 68 72 Pulse Rate [Finger] Pulse Rate from SpO2 Sensor 69 73 Respiratory Rate 18 19 Blood Pressure - Lying Blood Pressure - Sitting Blood Pressure- Standing Blood Pressure 115/62 112/69 Blood Pressure [Right Arm] Blood Pressure Mean 79 83 Blood Pressure Mean [Right Arm] Blood Pressure Position Pulse Oximetry 99 97 Oxygen Delivery Method Sepsis Recent Fever Within 48 Hours Sepsis New/Unexplained Change in Mental Status Sepsis Action Taken by Nursing Laboratory Data Result diagrams: 10/09/20 06:44 10/09/20 06:44 Lab Results 10/09/20 10/09/20 10/09/20 Range/Units 06:44 06:44 06:44 WBC 4.62 L (4.8-10.8) K/uL RBC 3.94 L (4.2-5.4) M/uL Hgb 12.8 (12.0-16.0) g/dL Hct 38.5 (37-47) % MCV 97.7 (80-100) fL MCH 32.5 (25-34) pg MCHC 33.2 (32-36) g/dL RDW Std Deviation 45.7 (36.4-46.3) fL RDW Coeff of Ajay 12.7 (11.5-14.5) % Plt Count 186 (130-400) K/uL MPV 11.3 H (7.4-10.4) fL Immature Gran % (Auto) 0.2 % Neut % (Auto) 63.7 % Lymph % (Auto) 23.8 % [place] % (Auto) 9.5 % Eos % (Auto) 2.6 % Baso % (Auto) 0.2 % Neut # (Auto) 2.94 (1.4-6.5) K/uL Lymph # (Auto) 1.10 L (1.2-3.4) K/uL [place] # (Auto) 0.44 (0.11-0.59) K/uL Eos # (Auto) 0.12 (0-0.5) K/uL Baso # (Auto) 0.01 (0-0.2) K/uL Immature Gran # (Auto) 0.01 (0.00-0.02) K/uL D-Dimer < 190 (0-500) ug/L FEU Sodium 143 (136-145) mmol/L Potassium 3.5 (3.5-5.1) mmol/L Chloride 109 H (98-107) mmol/L Carbon Dioxide 28 (21-32) mmol/L Anion Gap 6.0 (3-11) BUN 17 (7-18) mg/dl Creatinine 0.83 (0.6-1.2) mg/dl Est Cr Clr Drug Dosing 66.3 ml/min Est GFR ( Amer) 97.3 ml/min Est GFR (Non-Af Amer) 84.0 ml/min BUN/Creatinine Ratio 20.2 H (10-20) Glucose 81 (70-99) mg/dl Calcium 8.8 (8.5-10.1) mg/dl Magnesium 2.2 (1.8-2.4) mg/dl Total Bilirubin 0.4 (0.2-1) mg/dl AST 11 L (15-37) U/L ALT 20 (12-78) U/L Alkaline Phosphatase 63 (45-117) U/L Troponin I < 0.015 (0-0.045) ng/ml Total Protein 7.0 (6.4-8.2) gm/dl Albumin 3.7 (3.4-5.0) gm/dl Globulin 3.3 (2.5-4.0) gm/dl Albumin/Globulin Ratio 1.1 (0.9-2) TSH 1.720 (0.300-4.500) uIu/ml Ethyl Alcohol mg/dL (0-3) mg/dl COVID-19 Eval Order SARS-CoV-2 (PCR) (Negative) 10/09/20 10/09/20 10/09/20 Range/Units 06:51 07:47 07:47 WBC (4.8-10.8) K/uL RBC (4.2-5.4) M/uL Hgb (12.0-16.0) g/dL Hct (37-47) % MCV (80-100) fL MCH (25-34) pg MCHC (32-36) g/dL RDW Std Deviation (36.4-46.3) fL RDW Coeff of Ajay (11.5-14.5) % Plt Count (130-400) K/uL MPV (7.4-10.4) fL Immature Gran % (Auto) % Neut % (Auto) % Lymph % (Auto) % [place] % (Auto) % Eos % (Auto) % Baso % (Auto) % Neut # (Auto) (1.4-6.5) K/uL Lymph # (Auto) (1.2-3.4) K/uL [place] # (Auto) (0.11-0.59) K/uL Eos # (Auto) (0-0.5) K/uL Baso # (Auto) (0-0.2) K/uL Immature Gran # (Auto) (0.00-0.02) K/uL D-Dimer (0-500) ug/L FEU Sodium (136-145) mmol/L Potassium (3.5-5.1) mmol/L Chloride (98-107) mmol/L Carbon Dioxide (21-32) mmol/L Anion Gap (3-11) BUN (7-18) mg/dl Creatinine (0.6-1.2) mg/dl Est Cr Clr Drug Dosing ml/min Est GFR ( Amer) ml/min Est GFR (Non-Af Amer) ml/min BUN/Creatinine Ratio (10-20) Glucose (70-99) mg/dl Calcium (8.5-10.1) mg/dl Magnesium (1.8-2.4) mg/dl Total Bilirubin (0.2-1) mg/dl AST (15-37) U/L ALT (12-78) U/L Alkaline Phosphatase (45-117) U/L Troponin I (0-0.045) ng/ml Total Protein (6.4-8.2) gm/dl Albumin (3.4-5.0) gm/dl Globulin (2.5-4.0) gm/dl Albumin/Globulin Ratio (0.9-2) TSH (0.300-4.500) uIu/ml Ethyl Alcohol mg/dL < 3.0 (0-3) mg/dl COVID-19 Eval Order Covid19 at [facility] SARS-CoV-2 (PCR) NEGATIVE (Negative) Administered Medications Discontinued Medications Aspirin (Aspirin Chew 324 Mg) 324 mg PO NOW STA Stop: 10/09/20 09:00 Last Admin: 10/09/20 09:03 Dose: 324 mg Documented by: [id number] Sodium Chloride (Nss 1000ml) 1,000 mls @ 999 mls/hr IV .Q1H1M ONE Stop: 10/09/20 10:01 Last Infusion: 10/09/20 11:32 Dose: 0 mls/hr Documented by: [id number] Admin: 10/09/20 09:03 Dose: 999 mls/hr Documented by: [id number] Imaging Data Radiologist's Impression: Chest X-Ray 10/09/20 06:11 XR chest 1V portable CLINICAL HISTORY: syncope COMPARISON STUDY: Chest radiograph December 07, 2014. FINDINGS: Lung volumes are normal. Biapical opacities are unchanged and favor scarring. There is no pneumothorax or pleural effusion. Cardiac size is normal. Mediastinal contours are normal. There is no evidence for pulmonary edema. IMPRESSION: No acute cardiopulmonary findings. ACT 112: Negative or not required by law. Electronically signed by: Piter Berry M.D. 10/09/2020 6:43 AM Discharge Plan Visit Data Chief Complaint: Chest Pain Stated Complaint: CHEST PAIN,PASSED OUT ED Provider: Michael Espinoza Discharge Problem: Chest pain, Syncope, Shortness of breath, Abnormal EKG Patient Disposition: Admitted As Inpatient Discharge Instructions Interventions: ED Discharge Assessment Last Done: 10/09/20 10:00 Discharge Problem: Chest pain Qualifiers: Chest pain type: unspecified Qualified Code(s): R07.9 - Chest pain, unspecified Syncope Qualifiers: Syncope type: unspecified Qualified Code(s): R55 - Syncope and collapse
[2020-10-09 06:49] LABS: Appearance Urine Clear (Clear); Blood Urine Negative (Negative); Color Urine Dark Yellow; Glucose Urine UA Negative (Negative); Ketones Urine Trace (Negative); Leukocyte Esterase Urine Negative (Negative); Nitrite Urine Negative (Negative); Protein Urine Negative (Negative); Specific Gravity Urine 1.025 (1.000-1.030); Urobilinogen Urine Negative (Negative); pH Urine 5.5 (4.5-7.5)
[2020-10-09 06:51] LABS: Pregnancy Test, Urine Negative (Negative)
[2020-10-09 06:53] LABS: Bilirubin Urine 1+ (Negative)
[2020-10-09 06:58] LABS: Basophils # (auto) 0.01 K/uL (0-0.2); Basophils % (auto) 0.2 %; Eosinophils # (auto) 0.12 K/uL (0-0.5); Eosinophils % (auto) 2.6 %; Hematocrit (blood only) 38.5 % (37-47); Hemoglobin 12.8 g/dL (12.0-16.0); Immature Granulocytes # (auto) 0.01 K/uL (0.00-0.02); Immature Granulocytes % (auto) 0.2 %; Lymphocytes % (auto) 23.8 %; Mean Corpuscular Hemoglobin 32.5 pg (25-34); Mean Corpuscular Hgb Conc 33.2 g/dL (32-36); Mean Corpuscular Volume 97.7 fL (80-100); Mean Platelet Volume 11.3 fL (7.4-10.4); Monocytes # (auto) 0.44 K/uL (0.11-0.59); Monocytes % (auto) 9.5 %; Neutrophils # (auto) 2.94 K/uL (1.4-6.5); Neutrophils % (auto) 63.7 %; Platelet Count 186 K/uL (130-400); RDW Coefficient of Variation 12.7 % (11.5-14.5); RDW Standard Deviation 45.7 fL (36.4-46.3); Red Blood Count 3.94 M/uL (4.2-5.4); White Blood Count 4.62 K/uL (4.8-10.8)
[2020-10-09 07:15] LABS: Alanine Aminotransferase 20 U/L (12-78); Albumin Level 3.7 gm/dl (3.4-5.0); Aspartate Aminotransferase 11 U/L (15-37); BUN Creatinine Ratio 20.2 (10-20); Blood Urea Nitrogen 17 mg/dl (7-18); Calcium 8.8 mg/dl (8.5-10.1); Carbon Dioxide 28 mmol/L (21-32); Chloride 109 mmol/L (98-107); Creatinine Clr Calc Pharmacy 66.3 ml/min; Est GFR (African American) 97.3 ml/min; Glucose 81 mg/dl (70-99); Magnesium 2.2 mg/dl (1.8-2.4); Potassium 3.5 mmol/L (3.5-5.1); Sodium 143 mmol/L (136-145)
[2020-10-09 07:26] LABS: Albumin Globulin Ratio 1.1 (0.9-2); Alkaline Phosphatase 63 U/L (45-117); Bilirubin,Total 0.4 mg/dl (0.2-1); Globulin 3.3 gm/dl (2.5-4.0); Troponin I < 0.015 ng/ml (0-0.045)
[2020-10-09 07:47] LABS: D Dimer < 190 ug/L FEU (0-500)
[2020-10-09] MEDS ORDERED: ASPIRIN CHEW 324 MG PO STA (08:59)
[2020-10-09] MEDS ORDERED: SODIUM CHLORIDE 0.9% 1000ML 1,000 ML IV ONE (09:01)
--- NOTE | 2020-10-09 09:32 | Electrocardiogram Report ---
Test Reason : Blood Pressure : / mmHG Vent. Rate : 077 BPM Atrial Rate : 077 BPM P-R Int : 118 ms QRS Dur : 092 ms QT Int : 364 ms P-R-T Axes : 082 067 -14 degrees QTc Int : 411 ms Normal sinus rhythm Nonspecific T wave abnormality Anterior leads Abnormal ECG When compared with ECG of 08-DEC-2014 07:37, T wave inversion now evident in Inferior leads Nonspecific T wave abnormality now evident in Anterior leads Confirmed by Kit Tierney ([id number]) on 10/09/2020 9:31:48 AM Referred By: REFERRED SELF Confirmed By:Kit Tierney
--- NOTE | 2020-10-09 09:32 | History & Physical Report ---
Date of Service October 09, 2020 Assessment & Plan (1) Chest pain: Plan: Ongoing issue with intermittent chest pain but today's episode felt different than prior in both severity and quality - Monitor on telemetry - Trend troponin - Repeat EKG prn for recurrent chest pain - Consult cardiology for additional recommendations - negative stress test in Dec 2019 (2) Syncope: Plan: - Repeat ECHO due to syncopal episode - Check brain MRI - EEG to rule out seizure activity - Check carotid dopplers - Plan outlined in #1 - if cardiac work-up negative, consider neurology eval (pt follows with [facility] for migraines) (3) Chronic migraine: Plan: Currently doing well on outpatient regimen of Ajovy and Botox injections - Will use PRNs for any breakthrough HAs during admission (4) Anxiety: Plan: - Continue Wellbutrin XL as taking outpatient Plan: Pt seen and reviewed with attending physician, Dr. Zayas. Plan of care discussed and as outlined above. Code Status: Full code DVT prophylaxis: SCDs with ambulation Dipesh Guerin PA-C History of Present Illness Chief Complaint: Syncope, chest pain Primary Care Provider: Elliot Ceballos MD This is a 49 y/o female with a PMH of atypical CP, symptomatic PVCs, high frequency migraines, tobacco abuse, depression, anxiety and seasonal allergies who presented to the ED this morning via private vehicle after the acute onset of chest pain and a syncopal episode this morning at home. Pt notes ongoing issues with episodic chest discomfort described as "heartburn" for the past several months and for which she saw cardiology last fall. She underwent exercise stress ECHO in Dec 2019 which was negative for inducible ischemia, negative for valvular heart disease, and showed an LVEF of 55-60%. She had a ZIO patch in Dec 2019 that showed a 4 beat run of V-tach, 15 runs of SVT (longest 11.3 seconds), possible atrial tachycardia with variable block. She was taking propranolol and avoiding caffeine which seemed to help her symptoms until the past week or so. Last week she started to note recurrent episodes of "heartburn" and palpitations. Two days, palpitations were particularly severe, which pt thought may be due to dehydration so she increased her water intake and tried to rest a bit more. She was dizzy at that time. Last night, she reports that she did not sleep well due to some underlying life stresses. She woke up around 5 am this morning and decided to get up for the day and started folding laundry. While doing this, she got into an argument with her significant other and developed sharp stabbing substernal chest pain that radiated to her left arm and left subscapular area. This was different than prior episodes of chest pain, both in quality and in severity. She noted associated palpitations, lightheadedness, and shortness of breath. She walked away and up the stairs. Apparently when she got to the top of the stairs she passed out and her significant other found her on the floor when he heard her fall. She woke up within 1-2 minutes but has limited memory of the event. She did note that she saw a "lightning bolt flash of light" then everything faded away. She denies prior episodes of syncope. She notes that the left side of her head is slightly sore so she is unsure if she bumped it when she fell. She notes new onset of mild blurry vision since the syncopal event. This is somewhat similar to what she has gotten previously with migraines. Denies fevers, chills, N/V/D, cough, congestion, wheezing. Chest pain has essentially resolved although she has some residual chest tightness. No known contact with COVID or sick contacts. She reports she had "the bug going around" a few weeks ago but these symptoms had resolved. She has not received the COVID vaccine. No recent travel. She is currently vaping 4 pods/week (was previously smoking 2 PPD but has been trying to cut back). Multiple family members on maternal side with heart disease - aunt, uncles, mother, grandfather. Allergies Allergy/AdvReac Type Severity Reaction Status Date / Time shellfish derived Allergy Severe SWELLING Verified 10/09/20 07:08 THROAT AND EYES AND HIVES pseudoephedrine Allergy Intermediate rash Verified 10/09/20 07:08 indomethacin AdvReac CAPS Verified 10/09/20 11:22 Home Medications Medication Instructions Recorded Confirmed Type albuterol sulfate 90 mcg/actuation 2 puffs INH Q4H PRN gm 02/17/18 10/09/20 History aerosol inhaler epinephrine 0.3 mg/0.3 mL 0.3 mg IM Q10M PRN 02/17/18 10/09/20 History injection, auto-injector (EpiPen) montelukast 10 mg tablet 10 mg PO QAM 02/17/18 10/09/20 History bupropion HCl 300 mg 24 hr tablet, 300 mg PO QAM 03/03/19 10/09/20 History extended release (Wellbutrin XL) propranolol 10 mg tablet 10 mg PO BID 03/22/20 10/09/20 History rizatriptan 10 mg tablet (Maxalt) 10 mg PO Q2H PRN #12 tab MDD 30 mg 04/14/20 10/09/20 Rx fremanezumab-vfrm 225 mg/1.5 mL 225 mg SUBCUT MONTHLY 30 Days #1.5 09/26/20 10/09/20 Rx subcutaneous syringe (Ajovy ml Syringe) clonazepam 1 mg tablet 1 mg PO DAILY PRN 10/09/20 10/09/20 History ondansetron HCl 4 mg tablet 4 mg PO Q12H PRN 10/09/20 10/09/20 History trazodone 50 mg tablet 50 mg PO HS PRN 10/09/20 10/09/20 History Past Med/Surg History Medical History Allergic rhinitis Anxiety Bartholin gland cyst Deviated septum Migraines Surgical History H/O total hysterectomy History of History of endometrial ablation Hx of appendectomy Family History Mother Heart disease Diabetes Grandfather (Maternal) , age 68 due to [place] Heart disease Aunt , age 51 due to [place] Heart disease Uncle Heart disease Social History Smoking Status: Former smoker Tobacco Type: E-cigarettes / Vaping Hx Alcohol Use: No Hx Substance Use: No Preferred Language: Nepali Communication Ability: Effective Visual Impairment: Limited Hearing Ability: Normal Broadband Engineer Required: No Beliefs That Will Affect Care: None marital status: Current Living Situation: Significant Other Current Living Situation Comment: lives with boyfriend current occupational status: employed current occupation: customer service at [employer] Other Information That Helps Us Care for You: No Feels Safe at Home: Yes Safety Concerns: Feels Safe At This Time Assistive Devices: Glasses Review of Systems Review of Systems: All systems reviewed & are unremarkable except as noted in HPI & below Constitutional: no fever, no chills and no sweats Eyes: + problem reported (blurry visions since syncopal episode); no diplopia Ear, Nose, Mouth, Throat: no nasal congestion, no nasal discharge, no post nasal drip, no sore throat and no dysphagia Respiratory: as per Subjective / HPI; no cough, no hemoptysis, no sputum production and no wheezing Cardiovascular: as per Subjective / HPI, + chest pain, + dyspnea on exertion, + palpitations, + lightheadedness and + syncope; no edema Gastrointestinal: + heartburn; no abdominal pain, no nausea, no vomiting, no diarrhea/loose stools and no blood in stools Genitourinary: no dysuria, no hematuria and no flank pain Musculoskeletal: + joint pain (ongoing knee issues); no back pain and no neck pain Integumentary: no rash and no skin ulcer Neurologic: as per Subjective / HPI, + syncope and + headache(s); no tingling, no numbness, no tremor(s) and no seizure-like activity Psychiatric: + abnormal sleep pattern and + anxiety Physical Exam Constitutional: WD/WN, vitals as above Eyes: PERRL, conjunctivae normal, anicteric sclerae ENMT: external ear and nose normal, oropharynx normal Neck: trachea midline Respiratory: no respiratory distress and no labored breathing Auscultation: lungs clear to auscultation bilaterally; no rales, no rhonchi and no wheezes Cardiovascular: Rate/Rhythm: regular rate and regular rhythm Heart Sounds: no gallop, no murmur and no cardiac rub Vessels: dorsalis pedis pulses present and radial pulses present Extremities: normal capillary refill; no calf tenderness and no pedal edema Gastrointestinal (Abdomen): Inspection/Auscultation: normal bowel sounds; abdomen not distended Percussion/Palpation: abdomen soft; abdomen nontender Musculoskeletal: Head/Neck/Chest: normocephalic, head atraumatic and neck supple Skin: no rashes, warm and dry Neurologic: moves all extremities; no focal motor deficits Cranial Nerves: EOM intact bilaterally, normal facial strength, tongue midline, able to rotate head bilaterally and able to elevate shoulders bilaterally Psychiatric: A+Ox3, euthymic affect Results & Data Results & Data ([facility]) Vital Signs (Past 12 Hours) Vital Signs Temp Pulse Pulse Resp BP BP Pulse Ox 10/09/20 07:30 71 15 109/64 100 10/09/20 07:00 74 21 120/55 L 100 10/09/20 06:34 88 100 10/09/20 06:32 36.8 C 88 119/64 100 10/09/20 05:54 36.2 C L 89 18 123/63 100 Laboratory Results Laboratory Results - last 24 hr 10/09/20 10/09/20 10/09/20 06:44 06:44 06:44 WBC 4.62 L RBC 3.94 L Hgb 12.8 Hct 38.5 MCV 97.7 MCH 32.5 MCHC 33.2 RDW Std Deviation 45.7 RDW Coeff of Ajay 12.7 Plt Count 186 MPV 11.3 H Immature Gran % (Auto) 0.2 Neut % (Auto) 63.7 Lymph % (Auto) 23.8 [place] % (Auto) 9.5 Eos % (Auto) 2.6 Baso % (Auto) 0.2 Neut # (Auto) 2.94 Lymph # (Auto) 1.10 L [place] # (Auto) 0.44 Eos # (Auto) 0.12 Baso # (Auto) 0.01 Immature Gran # (Auto) 0.01 D-Dimer < 190 Sodium 143 Potassium 3.5 Chloride 109 H Carbon Dioxide 28 Anion Gap 6.0 BUN 17 Creatinine 0.83 Est Cr Clr Drug Dosing 66.3 Est GFR ( Amer) 97.3 Est GFR (Non-Af Amer) 84.0 BUN/Creatinine Ratio 20.2 H Glucose 81 Calcium 8.8 Magnesium 2.2 Total Bilirubin 0.4 AST 11 L ALT 20 Alkaline Phosphatase 63 Troponin I < 0.015 Total Protein 7.0 Albumin 3.7 Globulin 3.3 Albumin/Globulin Ratio 1.1 TSH 1.720 Urine Color Urine Appearance Urine pH Ur Specific [place] Urine Protein Urine Glucose (UA) Urine Ketones Urine Blood Urine Nitrite Urine Bilirubin Urine Urobilinogen Ur Leukocyte Esterase Urine Test Ethyl Alcohol mg/dL COVID-19 Eval Order SARS-CoV-2 (PCR) 10/09/20 10/09/20 10/09/20 06:51 07:47 07:47 WBC RBC Hgb Hct MCV MCH MCHC RDW Std Deviation RDW Coeff of Ajay Plt Count MPV Immature Gran % (Auto) Neut % (Auto) Lymph % (Auto) [place] % (Auto) Eos % (Auto) Baso % (Auto) Neut # (Auto) Lymph # (Auto) [place] # (Auto) Eos # (Auto) Baso # (Auto) Immature Gran # (Auto) D-Dimer Sodium Potassium Chloride Carbon Dioxide Anion Gap BUN Creatinine Est Cr Clr Drug Dosing Est GFR ( Amer) Est GFR (Non-Af Amer) BUN/Creatinine Ratio Glucose Calcium Magnesium Total Bilirubin AST ALT Alkaline Phosphatase Troponin I Total Protein Albumin Globulin Albumin/Globulin Ratio TSH Urine Color Urine Appearance Urine pH Ur Specific [place] Urine Protein Urine Glucose (UA) Urine Ketones Urine Blood Urine Nitrite Urine Bilirubin Urine Urobilinogen Ur Leukocyte Esterase Urine Test Ethyl Alcohol mg/dL < 3.0 COVID-19 Eval Order Covid19 at [facility] SARS-CoV-2 (PCR) NEGATIVE 10/09/20 10/09/20 Unknown Unknown WBC RBC Hgb Hct MCV MCH MCHC RDW Std Deviation RDW Coeff of Ajay Plt Count MPV Immature Gran % (Auto) Neut % (Auto) Lymph % (Auto) [place] % (Auto) Eos % (Auto) Baso % (Auto) Neut # (Auto) Lymph # (Auto) [place] # (Auto) Eos # (Auto) Baso # (Auto) Immature Gran # (Auto) D-Dimer Sodium Potassium Chloride Carbon Dioxide Anion Gap BUN Creatinine Est Cr Clr Drug Dosing Est GFR ( Amer) Est GFR (Non-Af Amer) BUN/Creatinine Ratio Glucose Calcium Magnesium Total Bilirubin AST ALT Alkaline Phosphatase Troponin I Total Protein Albumin Globulin Albumin/Globulin Ratio TSH Urine Color Dark Yellow Urine Appearance Clear Urine pH 5.5 Ur Specific [place] 1.025 Urine Protein Negative Urine Glucose (UA) Negative Urine Ketones Trace H Urine Blood Negative Urine Nitrite Negative Urine Bilirubin 1+ H Urine Urobilinogen Negative Ur Leukocyte Esterase Negative Urine Test Negative Ethyl Alcohol mg/dL COVID-19 Eval Order SARS-CoV-2 (PCR) Diagnostic Findings Chest X-ray 10/09/20 - IMPRESSION: No acute cardiopulmonary findings. Medications Administered Discontinued Medications Aspirin (Aspirin Chew 324 Mg) 324 mg PO NOW STA Stop: 10/09/20 09:00 Last Admin: 10/09/20 09:03 Dose: 324 mg Documented by: [id number] Sodium Chloride (Nss 1000ml) 1,000 mls @ 999 mls/hr IV .Q1H1M ONE Stop: 10/09/20 10:01 Last Infusion: 10/09/20 11:32 Dose: 0 mls/hr Documented by: [id number] Admin: 10/09/20 09:03 Dose: 999 mls/hr Documented by: [id number] Code Status & VTE Plan VTE Prophylaxis Plan VTE Prophylaxis will be ordered: Yes Supervising Physician Co-Signing Physician Notes Attending addendum: The patient was seen and examined in telemetry unit She has been complaining of chest pain/pressure with palpitation for some time She denies any headache and or blurred vision and she does not have any other neurological symptoms No history of GERD On examination Anxious but otherwise hemodynamically stable Chestclear to auscultate bilaterally. No precordial tenderness HeartS1-S2, no murmur Abdomenbenign Extremitiesno edema CNSalert, awake and oriented x3. No focal sensory and motor deficit appreciated Her admission labs, EKG and imaging studies including MRI and carotid ultrasound are unremarkable Appreciate cardiology input and will have possible stress test tomorrow We will get an EEG to rule out any event of seizure with history of recent syncope Agree with assessment and plan as outlined above by SABRINA Sow DR (1) Syncope Syncope type: unspecified Qualified Code(s): R55 - Syncope and collapse (2) Chest pain Chest pain type: unspecified Qualified Code(s): R07.9 - Chest pain, unspecified
[2020-10-09] MEDS ORDERED: ACETAMINOPHEN 325 MG TAB PO PRN (11:00)
[2020-10-09] MEDS ORDERED: traZODone HCL 50 MG TAB PO PRN (11:40)
[2020-10-09] MEDS ORDERED: PROPRANOLOL HCL 10 MG TAB PO SCH (11:45)
[2020-10-09] MEDS ORDERED: LORazepam 1 MG TAB PO SCH (12:00)
--- NOTE | 2020-10-09 12:18 | Magnetic Resonance Report ---
MRI OF THE BRAIN WITHOUT CONTRAST CLINICAL HISTORY: Syncope COMPARISON STUDY: December 08, 2014. FINDINGS: Sagittal T1, axial diffusion, proton density and T2 weighted axial, coronal FLAIR, and axial T1-weigh kamran images were acquired. No intra or extra-axial mass lesions are visualized Axial diffusion-weighted images reveal no evidence of acute or subacute infarction. There is no evidence of ventricular dilatation. Proton density T2-weighted and FLAIR images reveal no significant abnormalities. There are no abnormal flow voids. Orbits and paranasal sinuses are unremarkable. IMPRESSION: No acute intracranial hemorrhage, no midline shift or space occupying lesions. No evidence of restricted diffusion to suggest acute ischemia/infarct. ACT 112: Negative or not required by law. The above report was generated using voice recognition software. It may contain grammatical, syntax o r spelling errors. Electronically signed by: Machelle Eddy DO 10/09/2020 12:17 PM
--- NOTE | 2020-10-09 13:02 | Cardiology Consultation ---
Date of Consultation October 09, 2020 Assessment & Plan (1) Syncope: Patient is a 49-year-old female who suffered a brief syncopal spell this morning following a stressful argument. Notes poor sleep x1 to 2 days with marked stress and anxiety. Prior evaluation for sensed palpitations and atypical chest discomfort included normal stress echocardiogram in December 2021. Initial evaluation today without troponin elevation and with normal echocardiogram on review. No signs of acute myocardial injury to account for current complaints LV systolic function is preserved Plan: Maintain telemetry Increase propanolol to 10 mg 3 times daily, supplement potassium Keep n.p.o. after midnight tonight to allow risk stratification if necessary in a.m. (2) Chest pain: (3) Anxiety: (4) Abnormal EKG: (5) Chronic migraine: History of Present Illness Reason for Consultation: Syncope Requesting Physician: Dr. Zayas Attending Physician: Erick Zayas MD History of Present Illness Patient is a 49-year-old female previously evaluated for symptoms of palpitatio ns and atypical chest discomfort in December 2019. She presents this admission noting having restless sleep last night due to heart pounding and racing in the setting of acute anxiety and stress. This morning after a stressful argument walked up a flight of stairs and collapsed. She notes transient loss of consciousness. No sensation of tachypalpitations. Has chronic issues with chest pain which are described as sharp and jabbing in past has been correlated with sensed ventricular activity by event monitor. Has been taking medications as prescribed. Patient tearful on discussing degree of stress currently. No fevers chills or unexplained infections no bleeding difficulties. Appetite has been recently poor and has lost approximately 10 pounds recently over the past 6 months. Chronic migraine issues appear controlled. Since admission initial cardiac enzymes and echocardiogram were normal. EKG with nonspecific ST segment changes inferolaterally Allergies Allergy/AdvReac Type Severity Reaction Status Date / Time shellfish derived Allergy Severe SWELLING Verified 10/09/20 07:08 THROAT AND EYES AND HIVES pseudoephedrine Allergy Intermediate rash Verified 10/09/20 07:08 indomethacin AdvReac CAPS Verified 10/09/20 11:22 Home Medications Medication Instructions Recorded Confirmed Type albuterol sulfate 90 mcg/actuation 2 puffs INH Q4H PRN gm 02/17/18 10/09/20 History aerosol inhaler epinephrine 0.3 mg/0.3 mL 0.3 mg IM Q10M PRN 02/17/18 10/09/20 History injection, auto-injector (EpiPen) montelukast 10 mg tablet 10 mg PO QAM 02/17/18 10/09/20 History bupropion HCl 300 mg 24 hr tablet, 300 mg PO QAM 03/03/19 10/09/20 History extended release (Wellbutrin XL) propranolol 10 mg tablet 10 mg PO BID 03/22/20 10/09/20 History rizatriptan 10 mg tablet (Maxalt) 10 mg PO Q2H PRN #12 tab MDD 30 mg 04/14/20 10/09/20 Rx fremanezumab-vfrm 225 mg/1.5 mL 225 mg SUBCUT MONTHLY 30 Days #1.5 09/26/20 10/09/20 Rx subcutaneous syringe (Ajovy ml Syringe) clonazepam 1 mg tablet 1 mg PO DAILY PRN 10/09/20 10/09/20 History ondansetron HCl 4 mg tablet 4 mg PO Q12H PRN 10/09/20 10/09/20 History trazodone 50 mg tablet 50 mg PO HS PRN 10/09/20 10/09/20 History Patient History Medical History Allergic rhinitis Anxiety Bartholin gland cyst Deviated septum Migraines Surgical History H/O total hysterectomy History of History of endometrial ablation Hx of appendectomy Family History Mother Heart disease Diabetes Grandfather (Maternal) , age 68 due to [place] Heart disease Aunt , age 51 due to [place] Heart disease Uncle Heart disease Social History Smoking Status: Former smoker Tobacco Type: E-cigarettes / Vaping Hx Alcohol Use: No Hx Substance Use: No Preferred Language: Indonesian Communication Ability: Effective Visual Impairment: Limited Hearing Ability: Normal Senior Manager Required: No Beliefs That Will Affect Care: None marital status: Current Living Situation: Significant Other Current Living Situation Comment: lives with boyfriend current occupational status: employed current occupation: customer service at [employer] Other Information That Helps Us Care for You: No Feels Safe at Home: Yes Safety Concerns: Feels Safe At This Time Assistive Devices: Glasses Review of Systems Review of Systems: All systems reviewed & are unremarkable except as noted in HPI & below Results & Data ([facility]) Vital Signs (Past 12 Hours) Vital Signs Temp Pulse Pulse Resp BP BP BP 10/09/20 12:05 36.5 C 69 19 117/62 10/09/20 11:00 36.6 C 72 66 16 117/55 L 10/09/20 10:00 68 18 109/56 L 10/09/20 09:30 63 14 113/57 L 10/09/20 09:00 73 19 120/72 10/09/20 08:30 72 19 112/69 10/09/20 08:00 68 18 115/62 10/09/20 07:30 71 15 109/64 10/09/20 07:00 74 21 120/55 L 10/09/20 06:34 88 10/09/20 06:32 36.8 C 88 119/64 10/09/20 05:54 36.2 C L 89 18 123/63 Pulse Ox 10/09/20 12:05 100 10/09/20 11:00 100 10/09/20 10:00 99 10/09/20 09:30 100 10/09/20 09:00 100 10/09/20 08:30 97 10/09/20 08:00 99 10/09/20 07:30 100 10/09/20 07:00 100 10/09/20 06:34 100 10/09/20 06:32 100 10/09/20 05:54 100 Laboratory Results Laboratory Results - last 24 hr 10/09/20 10/09/20 10/09/20 06:44 06:44 06:44 WBC 4.62 L RBC 3.94 L Hgb 12.8 Hct 38.5 MCV 97.7 MCH 32.5 MCHC 33.2 RDW Std Deviation 45.7 RDW Coeff of Ajay 12.7 Plt Count 186 MPV 11.3 H Immature Gran % (Auto) 0.2 Neut % (Auto) 63.7 Lymph % (Auto) 23.8 [place] % (Auto) 9.5 Eos % (Auto) 2.6 Baso % (Auto) 0.2 Neut # (Auto) 2.94 Lymph # (Auto) 1.10 L [place] # (Auto) 0.44 Eos # (Auto) 0.12 Baso # (Auto) 0.01 Immature Gran # (Auto) 0.01 D-Dimer < 190 Sodium 143 Potassium 3.5 Chloride 109 H Carbon Dioxide 28 Anion Gap 6.0 BUN 17 Creatinine 0.83 Est Cr Clr Drug Dosing 66.3 Est GFR ( Amer) 97.3 Est GFR (Non-Af Amer) 84.0 BUN/Creatinine Ratio 20.2 H Glucose 81 Calcium 8.8 Magnesium 2.2 Total Bilirubin 0.4 AST 11 L ALT 20 Alkaline Phosphatase 63 Troponin I < 0.015 Total Protein 7.0 Albumin 3.7 Globulin 3.3 Albumin/Globulin Ratio 1.1 TSH 1.720 Urine Color Urine Appearance Urine pH Ur Specific [place] Urine Protein Urine Glucose (UA) Urine Ketones Urine Blood Urine Nitrite Urine Bilirubin Urine Urobilinogen Ur Leukocyte Esterase Urine Test Ethyl Alcohol mg/dL COVID-19 Eval Order SARS-CoV-2 (PCR) 10/09/20 10/09/20 10/09/20 06:51 07:47 07:47 WBC RBC Hgb Hct MCV MCH MCHC RDW Std Deviation RDW Coeff of Ajay Plt Count MPV Immature Gran % (Auto) Neut % (Auto) Lymph % (Auto) [place] % (Auto) Eos % (Auto) Baso % (Auto) Neut # (Auto) Lymph # (Auto) [place] # (Auto) Eos # (Auto) Baso # (Auto) Immature Gran # (Auto) D-Dimer Sodium Potassium Chloride Carbon Dioxide Anion Gap BUN Creatinine Est Cr Clr Drug Dosing Est GFR ( Amer) Est GFR (Non-Af Amer) BUN/Creatinine Ratio Glucose Calcium Magnesium Total Bilirubin AST ALT Alkaline Phosphatase Troponin I Total Protein Albumin Globulin Albumin/Globulin Ratio TSH Urine Color Urine Appearance Urine pH Ur Specific [place] Urine Protein Urine Glucose (UA) Urine Ketones Urine Blood Urine Nitrite Urine Bilirubin Urine Urobilinogen Ur Leukocyte Esterase Urine Test Ethyl Alcohol mg/dL < 3.0 COVID-19 Eval Order Covid19 at [facility] SARS-CoV-2 (PCR) NEGATIVE 10/09/20 10/09/20 Unknown Unknown WBC RBC Hgb Hct MCV MCH MCHC RDW Std Deviation RDW Coeff of Ajay Plt Count MPV Immature Gran % (Auto) Neut % (Auto) Lymph % (Auto) [place] % (Auto) Eos % (Auto) Baso % (Auto) Neut # (Auto) Lymph # (Auto) [place] # (Auto) Eos # (Auto) Baso # (Auto) Immature Gran # (Auto) D-Dimer Sodium Potassium Chloride Carbon Dioxide Anion Gap BUN Creatinine Est Cr Clr Drug Dosing Est GFR ( Amer) Est GFR (Non-Af Amer) BUN/Creatinine Ratio Glucose Calcium Magnesium Total Bilirubin AST ALT Alkaline Phosphatase Troponin I Total Protein Albumin Globulin Albumin/Globulin Ratio TSH Urine Color Dark Yellow Urine Appearance Clear Urine pH 5.5 Ur Specific [place] 1.025 Urine Protein Negative Urine Glucose (UA) Negative Urine Ketones Trace H Urine Blood Negative Urine Nitrite Negative Urine Bilirubin 1+ H Urine Urobilinogen Negative Ur Leukocyte Esterase Negative Urine Test Negative Ethyl Alcohol mg/dL COVID-19 Eval Order SARS-CoV-2 (PCR) Diagnostic Findings Stress echocardiography 01/06/2020 The stress echo is negative for inducible ischemia. No significant valvular disease is present. Exercise capacity is average . Blood pressure response to exercise was normal. The left ventricular cavity size is normal. The LV wall thickness is normal. The left ventricular wall motion is normal. Qualitative LV ejection Fraction = 55-60%. The left ventricular diastolic function is mildly abnormal (grade I). (1) Syncope Syncope type: unspecified Qualified Code(s): R55 - Syncope and collapse (2) Chest pain Chest pain type: unspecified Qualified Code(s): R07.9 - Chest pain, unspecified
[2020-10-09] MEDS ORDERED: POTASSIUM CHLORIDE CRTAB 20 MEQ TABCR PO STA (13:12)
--- NOTE | 2020-10-09 14:04 | Ultrasound Report ---
BILATERAL CAROTID DOPPLER STUDY HISTORY: syncope COMPARISON: None. TECHNIQUE: Real-time, grayscale, and color Doppler sonography of the carotid arteries was performed. Imaging reviewed in the transverse and longitudinal planes. All measurements were calculated based on NASCET criteria. FINDINGS: Antegrade flow is seen in the bilateral vertebral arteries. The brachial pressures are hemodynamically similar. No significant calcified plaque within the carotid arteries. The peak systolic velocity within the right ICA is 86 cm/s. The right systolic ratio is 1.4. The peak systolic velocity within the left ICA is 100 cm/s. The left systolic ratio is 1.7. IMPRESSION: No hemodynamically significant stenosis seen within the carotid arteries. ACT 112: Negative or not required by law. Electronically signed by: Aaron Babcock M.D. 10/09/2020 2:03 PM
[2020-10-09] MEDS: PROPRANOLOL HCL 10 MG TAB PO SCH ×2 (14:21→19:38)
[2020-10-09] MEDS: MONTELUKAST SODIUM 10 MG TABLET PO SCH (14:22)
[2020-10-09] MEDS: buPROPion XL 300 MG TABCR PO SCH (14:22)
[2020-10-09] MEDS: LORazepam 0.5 MG TAB PO PRN ×2 (15:48→21:58)
[2020-10-10] MEDS: buPROPion XL 300 MG TABCR PO SCH (08:47)
[2020-10-10] MEDS: MONTELUKAST SODIUM 10 MG TABLET PO SCH (08:47)
[2020-10-10 08:48] LABS: Basophils # (auto) 0.01 K/uL (0-0.2); Basophils % (auto) 0.3 %; Eosinophils # (auto) 0.09 K/uL (0-0.5); Eosinophils % (auto) 2.4 %; Hematocrit (blood only) 34.8 % (37-47); Hemoglobin 11.7 g/dL (12.0-16.0); Lymphocytes # (auto) 1.11 K/uL (1.2-3.4); Mean Corpuscular Hemoglobin 33.1 pg (25-34); Mean Corpuscular Hgb Conc 33.6 g/dL (32-36); Mean Corpuscular Volume 98.3 fL (80-100); Mean Platelet Volume 11.4 fL (7.4-10.4); Monocytes # (auto) 0.25 K/uL (0.11-0.59); Monocytes % (auto) 6.8 %; Neutrophils # (auto) 2.24 K/uL (1.4-6.5); Neutrophils % (auto) 60.5 %; Platelet Count 162 K/uL (130-400); RDW Coefficient of Variation 12.7 % (11.5-14.5); Red Blood Count 3.54 M/uL (4.2-5.4)
[2020-10-10] MEDS ORDERED: POTASSIUM CHLORIDE 10 MEQ TABCR PO SCH (09:00)
--- NOTE | 2020-10-10 09:05 | Electrocardiogram Report ---
Test Reason : Blood Pressure : / mmHG Vent. Rate : 057 BPM Atrial Rate : 057 BPM P-R Int : 114 ms QRS Dur : 088 ms QT Int : 416 ms P-R-T Axes : 078 062 035 degrees QTc Int : 404 ms Sinus bradycardia Otherwise normal ECG When compared with ECG of 09-OCT-2020 06:09, T wave inversion no longer evident in Inferior leads Nonspecific T wave abnormality Anterior leads no longer present Confirmed by Kit Tierney ([id number]) on 10/10/2020 9:05:19 AM Referred By: REFERRED SELF Confirmed By:Kit Tierney
[2020-10-10 09:22] LABS: Calcium 8.4 mg/dl (8.5-10.1); Creatinine Clr Calc Pharmacy 70.5 ml/min; Est GFR (African American) 104.9 ml/min; Est GFR (Non-African American) 90.5 ml/min; Potassium 3.7 mmol/L (3.5-5.1)
--- NOTE | 2020-10-10 13:46 | Hospitalist Progress Note ---
Date of Service October 10, 2020 Assessment & Plan (1) Chest pain: Plan: Ongoing issue with intermittent chest pain but today's episode felt different than prior in both severity and quality - Monitor on telemetry - Trend troponin - Repeat EKG prn for recurrent chest pain - Consult cardiology for additional recommendations - negative stress test in Dec 2019 -No chest pain and cardiac enzymes are negative for any ACS -Awaiting stress test before discharge this afternoon (2) Syncope: Plan: - Repeat ECHO due to syncopal episode: The LV is normal in size with normal Saad thickness, left ventricular wall motion is normal, EF is 55 to 60%, normal LV relaxation, normal heart chamber size - Check brain MRI-negative for any stroke - EEG to rule out seizure activity-done but awaiting report - Check carotid dopplers-negative for any stenosis - Plan outlined in #1 - if cardiac work-up negative, consider neurology eval (pt follows with [facility] for migraines) -No more syncope and no arrhythmias -Will be discharged home following negative stress test (3) Chronic migraine: Plan: Currently doing well on outpatient regimen of Ajovy and Botox injections - Will use PRNs for any breakthrough HAs during admission (4) Anxiety: Plan: - Continue Wellbutrin XL as taking outpatient Plan: Pt seen and reviewed with attending physician, Dr. Zayas. Plan of care discussed and as outlined above. Code Status: Full code DVT prophylaxis: SCDs with ambulation Dipesh Guerin PA-C Admission and Anticipated Discharge Date Admission Date: October 09, 2020 Subjective 10/10/2020 The patient was seen and examined in telemetry unit She denies any symptoms of chest pain or palpitation Complains of some chest tightness. very nonspecific last night which is resolved this morning Review of Systems Constitutional: no fever, no chills and no sweats Eyes: + problem reported (blurry visions since syncopal episode); no diplopia Ear, Nose, Mouth, Throat: no nasal congestion, no nasal discharge, no post nasal drip, no sore throat and no dysphagia Respiratory: as per Subjective / HPI; no cough, no hemoptysis, no sputum production and no wheezing Cardiovascular: as per Subjective / HPI, + chest pain, + dyspnea on exertion, + palpitations, + lightheadedness and + syncope; no edema Gastrointestinal: + heartburn; no abdominal pain, no nausea, no vomiting, no diarrhea/loose stools and no blood in stools Genitourinary: no dysuria, no hematuria and no flank pain Musculoskeletal: + joint pain (ongoing knee issues); no back pain and no neck pain Integumentary: no rash and no skin ulcer Neurologic: as per Subjective / HPI, + syncope and + headache(s); no tingling, no numbness, no tremor(s) and no seizure-like activity Psychiatric: + abnormal sleep pattern and + anxiety Physical Exam Physical Exam: Lying in bed comfortably Constitutional: average body habitus; not ill appearing Eyes: PERRL, conjunctivae normal, anicteric sclerae ENMT: external ear and nose normal, oropharynx normal Neck: trachea midline, no thyromegaly Respiratory: normal respiratory effort, lungs clear to auscultation Cardiovascular: RRR, no murmur, no edema Gastrointestinal (Abdomen): normal bowel sounds, soft, nontender, no hepatosplenomegaly Musculoskeletal: No precordial tenderness no acute arthritis involving any joint Neurologic: PERRL, EOMI, accommodation nl, no face palsy, no dysarthria Psychiatric: A+Ox3, euthymic affect Lymphatic: no cervical or axillary lymphadenopathy Results & Data Results & Data ([facility]) Vital Signs (Past 12 Hours) Vital Signs Temp Pulse Pulse Pulse Resp BP Pulse Ox 10/10/20 12:00 36.4 C L 74 18 110/74 99 10/10/20 07:25 36.4 C L 84 18 97/67 L 98 10/10/20 07:20 56 L 10/10/20 02:53 36.5 C 62 18 101/52 L 98 Laboratory Results Short CBC 10/10/20 Range/Units 08:17 WBC 3.70 L (4.8-10.8) K/uL Hgb 11.7 L (12.0-16.0) g/dL Hct 34.8 L (37-47) % Plt Count 162 (130-400) K/uL BMP 10/10/20 08:17 Sodium 141 Potassium 3.7 Chloride 111 H Carbon Dioxide 24 BUN 10 D Creatinine 0.78 Glucose 85 Calcium 8.4 L Cardiac Enzymes 10/09/20 10/09/20 Range/Units 13:10 19:20 Troponin I < 0.015 < 0.015 (0-0.045) ng/ml Medications Administered Current Inpatient Medications Acetaminophen (Acetaminophen 325 Mg Tab) 650 mg PO Q4H PRN PRN Reason: Pain or Fever Stop: 11/08/20 10:59 Bupropion HCl (Bupropion Xl 300 Mg Tabcr) 300 mg PO QAM [facility] Stop: 11/08/20 11:39 Last Admin: 10/10/20 08:47 Dose: 300 mg Documented by: Lorazepam (Lorazepam 0.5 Mg Tab) 0.5 mg PO Q6H PRN PRN Reason: Anxiety Stop: 11/08/20 15:25 Last Admin: 10/09/20 21:58 Dose: 0.5 mg Documented by: Montelukast Sodium (Montelukast Sodium 10 Mg Tablet) 10 mg PO QAM [facility] Stop: 11/08/20 11:39 Last Admin: 10/10/20 08:47 Dose: 10 mg Documented by: Potassium Chloride (Potassium Chloride 10 Meq Tabcr) 10 meq PO DAILY [facility] Stop: 11/09/20 08:59 Last Admin: 10/10/20 08:47 Dose: 10 meq Documented by: Propranolol HCl (Propranolol Hcl 10 Mg Tab) 10 mg PO TID [facility] Stop: 11/08/20 13:59 Last Admin: 10/09/20 19:38 Dose: 10 mg Documented by: Trazodone HCl (Trazodone Hcl 50 Mg Tab) 50 mg PO HS PRN PRN Reason: Sleep Stop: 11/08/20 11:39 (1) Chest pain Chest pain type: unspecified Qualified Code(s): R07.9 - Chest pain, unspecified (2) Syncope Syncope type: unspecified Qualified Code(s): R55 - Syncope and collapse
--- NOTE | 2020-10-10 14:30 | Electroencephalogram ---
EEG Procedure Note Date of Service October 10, 2020 Start / End Times Start Time: 1207 End Time: [address] Zayas History 49-year-old with history of syncope Home Medication List Medication Instructions Recorded Confirmed Type albuterol sulfate 90 mcg/actuation 2 puffs INH Q4H PRN gm 02/17/18 10/09/20 History aerosol inhaler epinephrine 0.3 mg/0.3 mL 0.3 mg IM Q10M PRN 02/17/18 10/09/20 History injection, auto-injector (EpiPen) montelukast 10 mg tablet 10 mg PO QAM 02/17/18 10/09/20 History bupropion HCl 300 mg 24 hr tablet, 300 mg PO QAM 03/03/19 10/09/20 History extended release (Wellbutrin XL) propranolol 10 mg tablet 10 mg PO BID 03/22/20 10/09/20 History rizatriptan 10 mg tablet (Maxalt) 10 mg PO Q2H PRN #12 tab MDD 30 mg 04/14/20 10/09/20 Rx fremanezumab-vfrm 225 mg/1.5 mL 225 mg SUBCUT MONTHLY 30 Days #1.5 09/26/20 10/09/20 Rx subcutaneous syringe (Ajovy ml Syringe) clonazepam 1 mg tablet 1 mg PO DAILY PRN 10/09/20 10/09/20 History ondansetron HCl 4 mg tablet 4 mg PO Q12H PRN 10/09/20 10/09/20 History trazodone 50 mg tablet 50 mg PO HS PRN 10/09/20 10/09/20 History Inpatient Medication List Bupropion HCl (Bupropion Xl 300 Mg Tabcr) 300 mg PO QAM [facility] Stop: 11/08/20 11:39 Last Admin: 10/10/20 08:47 Dose: 300 mg Documented by: [id number] Admin: 10/09/20 14:22 Dose: 300 mg Documented by: [id number] Lorazepam (Lorazepam 0.5 Mg Tab) 0.5 mg PO Q6H PRN PRN Reason: Anxiety Stop: 11/08/20 15:25 Last Admin: 10/09/20 21:58 Dose: 0.5 mg Documented by: [id number] Admin: 10/09/20 15:48 Dose: 0.5 mg Documented by: [id number] Montelukast Sodium (Montelukast Sodium 10 Mg Tablet) 10 mg PO QAM [facility] Stop: 11/08/20 11:39 Last Admin: 10/10/20 08:47 Dose: 10 mg Documented by: [id number] Admin: 10/09/20 14:22 Dose: 10 mg Documented by: [id number] Potassium Chloride (Potassium Chloride 10 Meq Tabcr) 10 meq PO DAILY [facility] Stop: 11/09/20 08:59 Last Admin: 10/10/20 08:47 Dose: 10 meq Documented by: [id number] Propranolol HCl (Propranolol Hcl 10 Mg Tab) 10 mg PO TID [facility] Stop: 11/08/20 13:59 Last Admin: 10/09/20 19:38 Dose: 10 mg Documented by: [id number] Admin: 10/09/20 14:21 Dose: 10 mg Documented by: [id number] Discontinued Medications Aspirin (Aspirin Chew 324 Mg) 324 mg PO NOW STA Stop: 10/09/20 09:00 Last Admin: 10/09/20 09:03 Dose: 324 mg Documented by: [id number] Sodium Chloride (Nss 1000ml) 1,000 mls @ 999 mls/hr IV .Q1H1M ONE Stop: 10/09/20 10:01 Last Infusion: 10/09/20 11:32 Dose: 0 mls/hr Documented by: [id number] Admin: 10/09/20 09:03 Dose: 999 mls/hr Documented by: [id number] Lorazepam (Lorazepam 1 Mg Tab) 1 mg PO 1200 [facility] Stop: 10/09/20 16:00 Last Admin: 10/09/20 15:47 Dose: Not Given Documented by: [id number] Potassium Chloride (Potassium Chloride Crtab 20 Meq Tabcr) 20 meq PO NOW STA Stop: 10/09/20 13:13 Last Admin: 10/09/20 14:27 Dose: 20 meq Documented by: [id number] Propranolol HCl (Propranolol Hcl 10 Mg Tab) 10 mg PO BID [facility] Stop: 11/08/20 11:44 Last Admin: 10/09/20 14:23 Dose: Not Given Documented by: [id number] Description This is a 21 electrode EEG with a single channel dedicated to limited EKG. The electrodes were placed in accordance with the International 10-20 system. Interpretation The predominant background activity consists of a fairly well modulated 10 Hz activity, of up to 50 mV in amplitude,seen symmetrically distributed over the posterior head regions bilaterally. This activity attenuates nicely with eye- opening and other alerting procedures. Photic stimulation was performed and elicited no change in the background activity and no abnormal responses were seen. Hyperventilation was not perf ormed. A minimal amount of muscle and movement artifact activity contaminated the recording and did not hinder interpretation to any significant degree. Throughout the waking portion of the recording, no focal abnormalities, abnormal slow activity, or potentially epileptogenic discharges are seen. The patient entered the drowsy state with no further activation. In summary, this EEG was normal during wakefulness and drowsiness. No focal abnormalities, potentially epileptogenic discharges, or abnormal slow activity was seen. Clinical Correlation The abscence of potentially epileptogenic activity does not exclude a seizure disorder, since interictally, EEGs can be normal. Clinical correlation is required. [facility] EEG Procedure Codes Indication for Procedure (1) Syncope: Neurology Neurology: [id number] EEG include record awake & drowsy
[2020-10-10] MEDS: PROPRANOLOL HCL 10 MG TAB PO SCH ×2 (16:01)
--- NOTE | 2020-10-10 17:17 | Discharge Summary ---
Date of Service October 10, 2020 Admission HPI Per Admitting Provider This is a 49 y/o female with a PMH of atypical CP, symptomatic PVCs, high frequency migraines, tobacco abuse, depression, anxiety and seasonal allergies who presented to the ED this morning via private vehicle after the acute onset of chest pain and a syncopal episode this morning at home. Pt notes ongoing issues with episodic chest discomfort described as "heartburn" for the past several months and for which she saw cardiology last fall. She underwent exercise stress ECHO in Dec 2019 which was negative for inducible ischemia, negative for valvular heart disease, and showed an LVEF of 55-60%. She had a ZIO patch in Dec 2019 that showed a 4 beat run of V-tach, 15 runs of SVT (longest 11.3 seconds), possible atrial tachycardia with variable block. She was taking propranolol and avoiding caffeine which seemed to help her symptoms until the past week or so. Last week she started to note recurrent episodes of "heartburn" and palpitations. Two days, palpitations were particularly severe, which pt thought may be due to dehydration so she increased her water intake and tried to rest a bit more. She was dizzy at that time. Last night, she reports that she did not sleep well due to some underlying life stresses. She woke up around 5 am this morning and decided to get up for the day and started folding laundry. While doing this, she got into an argument with her significant other and developed sharp stabbing substernal chest pain that radiated to her left arm and left subscapular area. This was different than prior episodes of chest pain, both in quality and in severity. She noted associated palpitations, lightheadedness, and shortness of breath. She walked away and up the stairs. Apparently when she got to the top of the stairs she passed out and her significant other found her on the floor when he heard her fall. She woke up within 1-2 minutes but has limited memory of the event. She did note that she saw a "lightning bolt flash of light" then everything faded away. She denies prior episodes of syncope. She notes that the left side of her head is slightly sore so she is unsure if she bumped it when she fell. She notes new onset of mild blurry vision since the syncopal event. This is somewhat similar to what she has gotten previously with migraines. Denies fevers, chills, N/V/D, cough, congestion, wheezing. Chest pain has essentially resolved although she has some residual chest tightness. No known contact with COVID or sick contacts. She reports she had "the bug going around" a few weeks ago but these symptoms had resolved. She has not received the COVID vaccine. No recent travel. She is currently vaping 4 pods/week (was previously smoking 2 PPD but has been trying to cut back). Multiple family members on maternal side with heart disease - aunt, uncles, mother, grandfather. Admission Exam Per Admitting Provider Constitutional: WD/WN, vitals as above Eyes: PERRL, conjunctivae normal, anicteric sclerae ENMT: external ear and nose normal, oropharynx normal Neck: trachea midline Respiratory: no respiratory distress and no labored breathing Auscultation: lungs clear to auscultation bilaterally; no rales, no rhonchi and no wheezes Cardiovascular: Rate/Rhythm: regular rate and regular rhythm Heart Sounds: no gallop, no murmur and no cardiac rub Vessels: dorsalis pedis pulses present and radial pulses present Extremities: normal capillary refill; no calf tenderness and no pedal edema Gastrointestinal (Abdomen): Inspection/Auscultation: normal bowel sounds; abdomen not distended Percussion/Palpation: abdomen soft; abdomen nontender Musculoskeletal: Head/Neck/Chest: normocephalic, head atraumatic and neck supple Skin: no rashes, warm and dry Neurologic: moves all extremities; no focal motor deficits Cranial Nerves: EOM intact bilaterally, normal facial strength, tongue midline, able to rotate head bilaterally and able to elevate shoulders bilaterally Psychiatric: A+Ox3, euthymic affect Principal Diagnosis Chest pain, no ACS and will have outpatient stress test, syncope-no apparent ca use identified, anxiety disorder, migraine Discharge Exam Constitutional average body habitus; not ill appearing Eyes PERRL, conjunctivae normal, anicteric sclerae ENMT external ear and nose normal, oropharynx normal Neck trachea midline, no thyromegaly Respiratory normal respiratory effort, lungs clear to auscultation Cardiovascular RRR, no murmur, no edema Gastrointestinal (Abdomen) normal bowel sounds, soft, nontender, no hepatosplenomegaly Neurologic PERRL, EOMI, accommodation nl, no face palsy, no dysarthria Psychiatric A+Ox3, euthymic affect Lymphatic no cervical or axillary lymphadenopathy Discharge Data Allergies Allergy/AdvReac Type Severity Reaction Status Date / Time shellfish derived Allergy Severe SWELLING Verified 10/09/20 07:08 THROAT AND EYES AND HIVES pseudoephedrine Allergy Intermediate rash Verified 10/09/20 07:08 indomethacin AdvReac CAPS Verified 10/09/20 11:22 Consultations 10/09/20 08:22 ED Decision to Admit Stat 10/09/20 11:00 Consult Cardiology Routine Ordered Studies 10/09/20 09:26 MR brain wo con Routine 10/09/20 13:30 US carotid doppler BI Routine Hospital Course (1) Chest pain: Ongoing issue with intermittent chest pain but today's episode felt different than prior in both severity and quality - Monitor on telemetry - Trend troponin - Repeat EKG prn for recurrent chest pain - Consult cardiology for additional recommendations - negative stress test in Dec 2019 -No chest pain and cardiac enzymes are negative for any ACS -Awaiting stress test before discharge this afternoon (2) Syncope: - Repeat ECHO due to syncopal episode: The LV is normal in size with normal Saad thickness, left ventricular wall motion is normal, EF is 55 to 60%, normal LV relaxation, normal heart chamber size - Check brain MRI-negative for any stroke - EEG to rule out seizure activity-done but awaiting report - Check carotid dopplers-negative for any stenosis - Plan outlined in #1 - if cardiac work-up negative, consider neurology eval (pt follows with [facility] for migraines) -No more syncope and no arrhythmias -Will be discharged home following negative stress test (3) Chronic migraine: Currently doing well on outpatient regimen of Ajovy and Botox injections - Will use PRNs for any breakthrough HAs during admission (4) Anxiety: - Continue Wellbutrin XL as taking outpatient Pt seen and reviewed with attending physician, Dr. Zayas. Plan of care discussed and as outlined above. Code Status: Full code DVT prophylaxis: SCDs with ambulation Dipesh Guerin PA-C Total Time Total Time Spent Total Time Spent (In Minutes): 35 minutes Discharge Plan Discharge Items Patient Disposition: Home - Self-Care Reason For Visit: SYNCOPE, CP Discharge Diagnosis: Chest pain, ACS and will have outpatient stress test, syncope-no apparent cause identified, anxiety disorder, migraine Condition on Discharge: Good Activity: Resume your previous activity Non-emergency contact: Primary Care Provider Call non-emergency contact if: you have any medication questions and your symptoms worsen Follow-up/Referrals: Elliot Ceballos MD [Primary Care Provider] - (Date & Time 10/17/2020 11:20 AM Provider Elliot Ceballos MD Department [facility] ) Diet: Heart Healthy Addtl Attending Provider Instructions: Please take your medications regularly [facility] will call with an appointment for stress test Please keep your regular appointment with the neurologist Pending Studies at Discharge: No Stand-Alone Forms: My [facility] [employer], Smoking Cessation Medications and DC Order Prescriptions: Continued montelukast 10 mg tablet 10 mg PO QAM RF: 0 epinephrine [EpiPen] 0.3 mg/0.3 mL auto-injector 0.3 mg IM Q10M PRN (Reason: Allergic Reaction) RF: 0 albuterol sulfate 90 mcg/actuation HFA aerosol inhaler 2 puffs INH Q4H PRN (Reason: Shortness Of Breath) RF: 0 bupropion HCl [Wellbutrin XL] 300 mg tablet extended release 24 hr 300 mg PO QAM RF: 0 Ajovy Syringe 225 mg/1.5 mL syringe 225 mg subcut MONTHLY 30 Days Qty: 1.5 RF: 5 rizatriptan [Maxalt] 10 mg tablet 10 mg PO Q2H MDD 30 mg PRN (Reason: migraine headache) Qty: 12 RF: 5 trazodone 50 mg tablet 50 mg PO HS PRN (Reason: Sleep) RF: 0 ondansetron HCl 4 mg tablet 4 mg PO Q12H PRN (Reason: Nausea) RF: 0 clonazepam 1 mg tablet 1 mg PO DAILY PRN (Reason: Anxiety) 10 Days Qty: 10 RF: 0 Changed propranolol 10 mg tablet 10 mg PO TID Qty: 0 RF: 0 Discharge Orders: Discharge Order (Routine); Ordered 10/10/20 Ordered By: Erick Zayas Admission Data Admit Date/Time: 10/09/20 08:33 Attending Provider: Erick Zayas Admit Provider: Erick Zayas Primary Care Provider: Elliot Ceballos Other Providers: Erick Zayas ; Alejandro Evans
--- NOTE | 2020-10-10 17:37 | Cardiology Progress Note ---
Date of Service October 10, 2020 Assessment & Plan (1) Syncope: Plan: Patient is a 49-year-old female who suffered a brief syncopal spell this morning following a stressful argument. Notes poor sleep x1 to 2 days with marked stress and anxiety. Prior evaluation for sensed palpitations and atypical chest discomfort included normal stress echocardiogram in December 2021. Since admission no further arrhythmias. No angina or chest discomfort. Troponins negative x3 Patient notes significant component of stress in symptoms Plan: Discharge on propanolol 10 mg 3 times per day Potassium 10 mEq p.o. daily Stress nuclear study as an outpatient Will need help with stress reduction through PCP (2) Chest pain: (3) Anxiety: (4) Abnormal EKG: (5) Chronic migraine: Admission and Anticipated Discharge Date Admission Date: October 09, 2020 Subjective Patient was seen and examined, chart, medications, telemetry reviewed. Patient slept most of the last night and today feels substantially better. Stress input relieved. No arrhythmias on telemetry EKG normalized no chest pains or discomfort when up in room today. Review of Systems Review of Systems: All systems reviewed & are unremarkable except as noted in Subjective Physical Exam Constitutional: WD/WN, vitals as above Eyes: PERRL, conjunctivae normal, anicteric sclerae ENMT: external ear and nose normal, oropharynx normal Neck: trachea midline, no thyromegaly Respiratory: normal respiratory effort, lungs clear to auscultation Cardiovascular: Rate/Rhythm: regular rate and regular rhythm Heart Sounds: normal S1 and normal S2; no gallop and no murmur Palpation: normal PMI Vessels: normal carotid upstroke and radial pulses present; no JVD and no carotid bruit Extremities: no edema Gastrointestinal (Abdomen): normal bowel sounds, soft, nontender, no hepatosplenomegaly Musculoskeletal: no cyanosis or clubbing, extremities motor strength 5/5 Skin: no rashes, warm and dry Neurologic: PERRL, EOMI, accommodation nl, no face palsy, no dysarthria Psychiatric: A+Ox3, euthymic affect Results & Data ([facility]) Vital Signs (Past 12 Hours) Vital Signs Temp Pulse Pulse Resp BP Pulse Ox 10/10/20 17:16 36.4 C L 74 18 110/74 99 10/10/20 15:00 71 10/10/20 12:00 36.4 C L 74 18 110/74 99 10/10/20 07:25 36.4 C L 84 18 97/67 L 98 10/10/20 07:20 56 L Laboratory Results Laboratory Results - last 24 hr 10/09/20 10/10/20 10/10/20 19:20 08:17 08:17 WBC 3.70 L RBC 3.54 L Hgb 11.7 L Hct 34.8 L MCV 98.3 MCH 33.1 MCHC 33.6 RDW Std Deviation 46.0 RDW Coeff of Ajay 12.7 Plt Count 162 MPV 11.4 H Immature Gran % (Auto) 0.0 Neut % (Auto) 60.5 Lymph % (Auto) 30.0 Meade % (Auto) 6.8 Eos % (Auto) 2.4 Baso % (Auto) 0.3 Neut # (Auto) 2.24 Lymph # (Auto) 1.11 L Meade # (Auto) 0.25 Eos # (Auto) 0.09 Baso # (Auto) 0.01 Immature Gran # (Auto) 0.00 Sodium 141 Potassium 3.7 Chloride 111 H Carbon Dioxide 24 Anion Gap 6.0 BUN 10 D Creatinine 0.78 Est Cr Clr Drug Dosing 70.5 Est GFR ( Amer) 104.9 Est GFR (Non-Af Amer) 90.5 BUN/Creatinine Ratio 13.0 Glucose 85 Calcium 8.4 L Troponin I < 0.015 (1) Syncope Syncope type: unspecified Qualified Code(s): R55 - Syncope and collapse (2) Chest pain Chest pain type: unspecified Qualified Code(s): R07.9 - Chest pain, unspecified
== END 2020-10-10 18:21 | disposition home or self-care (01) ==
LOC: ED 05:52 → 2S 08:33 → INTOOBSV 08:33 → 2S 10:00

== ENCOUNTER 2022-09-21 10:55 | Inpatient (IN) ==
[2022-09-21] MEDS ORDERED: clonazePAM 1 MG TAB PO STA (12:06)
--- NOTE | 2022-09-21 12:10 | Emergency Department Note ---
ED Provider Note History of Present Illness Chief Complaint: Shortness of Breath/Dyspnea Stated Complaint: DIFFICULTY BREATHING, ASTHMA Time Seen by Provider: 09/21/22 11:29 Source: patient Mode of arrival: ambulatory Limitations: no limitations This patient is a 51-year-old female who presents to the emergency for evaluation of shortness of breath. Patient reports that for the past 2 days, she has had some intermittent chest tightness/shortness of breath. She feels like she is not able to take a full breath or inflate her lungs fully. She reports a tight, painful sensation across her chest. She states that when this occurs, she starts to get anxious and this seems to make her symptoms worse. 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 She thought that this might have initially caused her symptoms. Patient herself is a former smoker but quit about 3 years ago. She does report a history of some seasonal asthma but has not had issues with this since she quit smoking. She tried using her inhaler but it is and this did not help. She did try taking Klonopin and this did help somewhat. She does report a strong family history of cardiac disease on her mother side. She states that she has been admitted here for similar issues in the past and was told there was some sort of blockage but that nothing needed to be done about it. Patient denies any leg pain/swelling. She denies any recent travel or immobilization. She does not take control pills or use hormone replacements. Home Medications Medication Instructions Recorded Confirmed Type albuterol sulfate 90 mcg/actuation 2 puffs inhalation Q4H PRN 02/17/18 09/21/22 History aerosol inhaler Shortness Of Breath epinephrine 0.3 mg/0.3 mL 0.3 mg IM Q10M PRN Allergic 02/17/18 09/21/22 History injection, auto-injector (EpiPen) Reaction montelukast 10 mg tablet 10 mg PO QAM 02/17/18 09/21/22 History ondansetron HCl 4 mg tablet 4 mg PO Q12H PRN Nausea 10/09/20 09/21/22 History trazodone 50 mg tablet 50 mg PO HS PRN Sleep 10/09/20 09/21/22 History clonazepam 1 mg tablet 1 mg PO DAILY PRN Anxiety 10 days 10/10/20 09/21/22 Rx #10 tabs propranolol 10 mg tablet 10 mg PO TID #0 tabs 10/10/20 09/21/22 Rx bupropion HCl 150 mg tablet,12 hr 150 mg PO DAILY 01/15/22 09/21/22 History sustained-release (Wellbutrin SR) hydrocodone 5 mg-acetaminophen 325 2 tab PO .COMPLEX PRN pain #10 tabs 07/24/22 09/21/22 Rx mg tablet rizatriptan 10 mg tablet (Maxalt) 10 mg PO Q2H PRN migraine headache 07/24/22 09/21/22 Rx #12 tabs methylprednisolone 4 mg tablets in 4 mg PO .COMPLEX PRN Migraine 09/21/22 09/21/22 History a dose pack (Medrol (Fred)) Headache Allergies Allergy/AdvReac Type Severity Reaction Status Date / Time shellfish derived Allergy Severe SWELLING Verified 07/24/22 11:28 THROAT AND EYES AND HIVES pseudoephedrine Allergy Intermediate rash Verified 07/24/22 11:28 indomethacin AdvReac CAPS Verified 07/24/22 11:28 Past Med/Surg History Medical History (Updated 09/21/22 @ 20:30 by Kanwal Ramsey PA-C) Abnormal EKG Allergic rhinitis Anxiety Bartholin gland cyst Depression Deviated septum Migraines Surgical History H/O total hysterectomy History of History of endometrial ablation Hx of appendectomy Family History Mother Heart disease Diabetes Grandfather (Maternal) , age 68 due to [place] Heart disease Aunt , age 51 due to [place] Heart disease Uncle Heart disease Social History Smoking Status: Never smoker Tobacco Type: E-cigarettes / Vaping Smoking End Date: 2019; Hx Alcohol Use: No Hx Substance Use: No Preferred Language: Kinyarwanda Communication Ability: Effective Visual Impairment: Limited Hearing Ability: Normal 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 Beliefs That Will Affect Care: None marital status: Current Living Situation: Alone Current Living Situation Comment: lives with boyfriend current occupational status: employed current occupation: customer service at [employer] Other Information That Helps Us Care for You: No Feels Safe at Home: Yes Safety Concerns: Feels Safe At This Time Assistive Devices: None Physical Exam Vital Signs Vital Signs - 24 hr 09/21/22 11:07 09/21/22 11:29 09/21/22 11:50 Temperature 35.7 C L Temperature Source Oral Pulse Rate 91 H Pulse Rate [Apical] 82 Pulse Rhythm [Apical] Regular Respiratory Rate 20 24 Respiratory Effort / Characteristics Non-Labored Spontaneous Non-Labored Spontaneous Respiratory Depth Normal Normal Respiratory Pattern Regular Regular Blood Pressure 121/61 Blood Pressure [Left Arm] 117/73 Blood Pressure Mean 81 Blood Pressure Mean [Left Arm] 87 Blood Pressure Position [Left Arm] Lying Pulse Oximetry 100 95 Oxygen Delivery Method Room Air Room Air Room Air Oxygen Flow Rate 100 Sepsis Recent Fever Within 48 Hours No Sepsis New/Unexplained Change in Mental Status No Sepsis Action Taken by Nursing No Action Required 09/21/22 11:54 09/21/22 13:04 09/21/22 14:25 Temperature Temperature Source Pulse Rate 68 Pulse Rate [Apical] 90 Pulse Rhythm [Apical] Regular Respiratory Rate 18 Respiratory Effort / Characteristics Non-Labored Spontaneous Non-Labored Spontaneous Respiratory Depth Normal Normal Respiratory Pattern Regular Regular Blood Pressure Blood Pressure [Left Arm] 114/73 Blood Pressure Mean Blood Pressure Mean [Left Arm] 86 Blood Pressure Position [Left Arm] Lying Pulse Oximetry 100 Oxygen Delivery Method Room Air Oxygen Flow Rate Sepsis Recent Fever Within 48 Hours Sepsis New/Unexplained Change in Mental Status Sepsis Action Taken by Nursing 09/21/22 16:38 Temperature Temperature Source Pulse Rate Pulse Rate [Apical] 71 Pulse Rhythm [Apical] Respiratory Rate Respiratory Effort / Characteristics Respiratory Depth Respiratory Pattern Blood Pressure Blood Pressure [Left Arm] 105/74 Blood Pressure Mean Blood Pressure Mean [Left Arm] 84 Blood Pressure Position [Left Arm] Lying Pulse Oximetry Oxygen Delivery Method Oxygen Flow Rate Sepsis Recent Fever Within 48 Hours Sepsis New/Unexplained Change in Mental Status Sepsis Action Taken by Nursing VITALS: Vitals are noted on the nurse's note and reviewed by myself. GENERAL: This is a 51-year-old female, in no acute distress, well-developed well-nourished. SKIN: The skin was without rashes. EARS: External auditory canals clear, tympanic membranes pearly ty without erythema or effusion bilaterally. EYES: Pupils equal round and reactive to light and accommodation. MOUTH: Mucous membranes moist. NECK: Supple without nuchal rigidity. No lymphadenopathy. HEART: Regular rate and rhythm without murmurs gallops or rubs. LUNGS: Clear to auscultation bilaterally without wheezes, rales or rhonchi. No retractions or accessory muscle use. ABDOMEN: Positive bowel sounds x 4. Soft, nontender to palpation. EXTREMITIES: No lower extremity edema. NEURO: Patient was alert and oriented to person place and time. Course Administered Medications Albuterol (Albut/Ipratrop 3mg/0.5mg Neb 3 Ml Vial) 3 ml NEB Q4R SARAH; Protocol Stop: 10/21/22 18:59 Last Admin: 09/21/22 19:16 Dose: 3 ml Documented By: YOSELYN Clonazepam (Clonazepam 1 Mg Tab) 1 mg PO DAILY PRN PRN Reason: Anxiety Stop: 10/21/22 18:38 Last Admin: 09/21/22 20:18 Dose: 1 mg Documented By: FELICIA Heparin Sodium (Porcine) (Heparin Sod 5,000 Unit/0.5 Ml Vial) 5,000 units SQ Q8 SARAH Stop: 10/21/22 21:59 Last Admin: 09/21/22 20:12 Dose: 5,000 units Documented By: FELICIA Montelukast Sodium (Montelukast Sodium 10 Mg Tablet) 10 mg PO HS SARAH Stop: 10/21/22 20:59 Last Admin: 09/21/22 20:13 Dose: 10 mg Documented By: FELICIA Prednisone (Prednisone 20 Mg Tab) 20 mg PO DAILY SARAH Stop: 10/21/22 18:38 Last Admin: 09/21/22 20:13 Dose: 20 mg Documented By: FELICIA Propranolol HCl (Propranolol Hcl 10 Mg Tab) 10 mg PO TID SARAH Stop: 10/21/22 20:59 Last Admin: 09/21/22 20:14 Dose: Not Given Documented By: FELICIA Trazodone HCl (Trazodone Hcl 50 Mg Tab) 50 mg PO HS PRN PRN Reason: Sleep Stop: 10/21/22 18:38 Last Admin: 09/21/22 20:18 Dose: 50 mg Documented By: FELICIA Discontinued Medications Albuterol (Albut/Ipratrop 3mg/0.5mg Neb 3 Ml Vial) 3 ml NEB NOW STA; Protocol Stop: 09/21/22 13:01 Last Admin: 09/21/22 13:10 Dose: 3 ml Documented By: TURNER Clonazepam (Clonazepam 1 Mg Tab) 1 mg PO NOW STA Stop: 09/21/22 12:07 Last Admin: 09/21/22 12:26 Dose: 1 mg Documented By: TURNER Hydroxyzine HCl (Hydroxyzine Hcl 25 Mg Tab) 25 mg PO NOW STA Stop: 09/21/22 13:53 Last Admin: 09/21/22 14:19 Dose: 25 mg Documented By: TURNER Potassium Chloride (Potassium Chloride Crtab 20 Meq Tabcr) 40 meq PO NOW STA Stop: 09/21/22 16:39 Last Admin: 09/21/22 16:47 Dose: 40 meq Documented By: TURNER Potassium Chloride (Potassium Chloride Crtab 20 Meq Tabcr) 20 meq PO NOW STA Stop: 09/21/22 17:19 Last Admin: 09/21/22 20:17 Dose: 20 meq Documented By: FELICIA Medical Decision Making Differential Diagnosis Reactive airway disease, pneumonia, pneumothorax, COPD, CHF, infections, cardiac ischemia, pulmonary embolism, musculoskeletal, gastrointestinal, as well as othe r pathologies. Home Medications was personally reviewed by me Laboratory Data Attestation: I reviewed the patient's lab results. 09/21/22 11:29 09/21/22 11:29 Lab Results 09/21/22 09/21/22 09/21/22 Range/Units 11:29 11:29 11:29 WBC 7.58 (4.8-10.8) K/ul RBC 4.51 (4.20-5.40) M/uL Hgb 14.8 (12.0-16.0) g/dl Hct 41.3 (37.0-47.0) % MCV 91.6 (80.0-100.0) fL MCH 32.8 (25.0-34.0) pg MCHC 35.8 (32.0-36.0) g/dL RDW Std Deviation 40.1 (36.4-46.3) fL RDW Coeff of Ajay 12.0 (11.5-14.5) % Plt Count 239 (130-400) K/uL MPV 11.8 (9.4-12.4) fL Immature Gran % (Auto) 0.3 % Neut % (Auto) 57.9 % Lymph % (Auto) 28.6 % Otero % (Auto) 9.5 % Eos % (Auto) 3.2 % Baso % (Auto) 0.5 % Neut # (Auto) 4.39 (1.40-6.50) K/uL Lymph # (Auto) 2.17 (1.2-3.4) K/uL Otero # (Auto) 0.72 H (0.11-0.59) K/uL Eos # (Auto) 0.24 (0-0.50) K/uL Baso # (Auto) 0.04 (0-0.2) K/uL Immature Gran # (Auto) 0.02 (0.01-0.20) K/uL ESR (0-20) mm/hr D-Dimer 200 (0-500) ug/L FEU Sodium 138 (136-145) mmol/L Potassium 3.1 L (3.5-5.1) mmol/L Chloride 105 (98-107) mmol/L Carbon Dioxide 21 (21-32) mmol/L Anion Gap 12 H (3-11) BUN 14 (6-23) mg/dl Creatinine 0.90 (0.6-1.2) mg/dl Est Cr Clr Drug Dosing 57.1 ml/min Est GFR ( Amer) 87.0 ml/min Est GFR (Non-Af Amer) 75.1 ml/min BUN/Creatinine Ratio 15.6 (10-20) Glucose 84 (70-99(Fasting)) mg/dl Calcium 10.2 (8.6-10.3) mg/dl Total Bilirubin 0.7 (0.2-1.0) mg/dl AST 15 (13-39) U/L ALT 12 (7-52) U/L Alkaline Phosphatase 46 (34-104) U/L Troponin I High Sens < 2.3 (0-14) pg/ml C-Reactive Protein < 0.50 (0-0.5) mg/dl Total Protein 7.8 (6.0-8.3) gm/dl Albumin 4.8 (3.4-5.0) gm/dl Globulin 3.0 (2.5-4.0) gm/dl Albumin/Globulin Ratio 1.6 (0.9-2) Procalcitonin (0-0.5) ng/ml SARS-CoV-2 (PCR) (Negative) Influenza Type A (PCR) (Neg) Influenza Type B (PCR) (Neg) RSV (RT-PCR) (Neg) SARS-CoV-2, RNA, NAAT (NEGATIVE) 09/21/22 09/21/22 09/21/22 Range/Units 11:29 11:29 11:29 WBC (4.8-10.8) K/ul RBC (4.20-5.40) M/uL Hgb (12.0-16.0) g/dl Hct (37.0-47.0) % MCV (80.0-100.0) fL MCH (25.0-34.0) pg MCHC (32.0-36.0) g/dL RDW Std Deviation (36.4-46.3) fL RDW Coeff of Ajay (11.5-14.5) % Plt Count (130-400) K/uL MPV (9.4-12.4) fL Immature Gran % (Auto) % Neut % (Auto) % Lymph % (Auto) % Otero % (Auto) % Eos % (Auto) % Baso % (Auto) % Neut # (Auto) (1.40-6.50) K/uL Lymph # (Auto) (1.2-3.4) K/uL Otero # (Auto) (0.11-0.59) K/uL Eos # (Auto) (0-0.50) K/uL Baso # (Auto) (0-0.2) K/uL Immature Gran # (Auto) (0.01-0.20) K/uL ESR 11 (0-20) mm/hr D-Dimer (0-500) ug/L FEU Sodium (136-145) mmol/L Potassium (3.5-5.1) mmol/L Chloride (98-107) mmol/L Carbon Dioxide (21-32) mmol/L Anion Gap (3-11) BUN (6-23) mg/dl Creatinine (0.6-1.2) mg/dl Est Cr Clr Drug Dosing ml/min Est GFR ( Amer) ml/min Est GFR (Non-Af Amer) ml/min BUN/Creatinine Ratio (10-20) Glucose (70-99(Fasting)) mg/dl Calcium (8.6-10.3) mg/dl Total Bilirubin (0.2-1.0) mg/dl AST (13-39) U/L ALT (7-52) U/L Alkaline Phosphatase (34-104) U/L Troponin I High Sens (0-14) pg/ml C-Reactive Protein Cancelled (0-0.5) mg/dl Total Protein (6.0-8.3) gm/dl Albumin (3.4-5.0) gm/dl Globulin (2.5-4.0) gm/dl Albumin/Globulin Ratio (0.9-2) Procalcitonin < 0.05 (0-0.5) ng/ml SARS-CoV-2 (PCR) (Negative) Influenza Type A (PCR) (Neg) Influenza Type B (PCR) (Neg) RSV (RT-PCR) (Neg) SARS-CoV-2, RNA, NAAT (NEGATIVE) 09/21/22 09/21/22 Range/Units 12:23 16:37 WBC (4.8-10.8) K/ul RBC (4.20-5.40) M/uL Hgb (12.0-16.0) g/dl Hct (37.0-47.0) % MCV (80.0-100.0) fL MCH (25.0-34.0) pg MCHC (32.0-36.0) g/dL RDW Std Deviation (36.4-46.3) fL RDW Coeff of Ajay (11.5-14.5) % Plt Count (130-400) K/uL MPV (9.4-12.4) fL Immature Gran % (Auto) % Neut % (Auto) % Lymph % (Auto) % Otero % (Auto) % Eos % (Auto) % Baso % (Auto) % Neut # (Auto) (1.40-6.50) K/uL Lymph # (Auto) (1.2-3.4) K/uL Otero # (Auto) (0.11-0.59) K/uL Eos # (Auto) (0-0.50) K/uL Baso # (Auto) (0-0.2) K/uL Immature Gran # (Auto) (0.01-0.20) K/uL ESR (0-20) mm/hr D-Dimer (0-500) ug/L FEU Sodium (136-145) mmol/L Potassium (3.5-5.1) mmol/L Chloride (98-107) mmol/L Carbon Dioxide (21-32) mmol/L Anion Gap (3-11) BUN (6-23) mg/dl Creatinine (0.6-1.2) mg/dl Est Cr Clr Drug Dosing ml/min Est GFR ( Amer) ml/min Est GFR (Non-Af Amer) ml/min BUN/Creatinine Ratio (10-20) Glucose (70-99(Fasting)) mg/dl Calcium (8.6-10.3) mg/dl Total Bilirubin (0.2-1.0) mg/dl AST (13-39) U/L ALT (7-52) U/L Alkaline Phosphatase (34-104) U/L Troponin I High Sens (0-14) pg/ml C-Reactive Protein (0-0.5) mg/dl Total Protein (6.0-8.3) gm/dl Albumin (3.4-5.0) gm/dl Globulin (2.5-4.0) gm/dl Albumin/Globulin Ratio (0.9-2) Procalcitonin (0-0.5) ng/ml SARS-CoV-2 (PCR) NEGATIVE (Negative) Influenza Type A (PCR) Negative (Neg) Influenza Type B (PCR) Negative (Neg) RSV (RT-PCR) Negative (Neg) SARS-CoV-2, RNA, NAAT NEGATIVE (NEGATIVE) Imaging Data Attestation: I personally reviewed and interpreted this imaging study as follows: Radiologist's Impression: Chest X-Ray 09/21/22 12:05 XR chest 1V portable HISTORY: 51 years-old Female Dyspnea acute shortness of breath COMPARISON: 10/09/2020 TECHNIQUE: AP view of the chest FINDINGS: Cardiomediastinal and hilar silhouettes are within normal limits. No p neumothorax, pleural effusion, or pulmonary edema. Subtle ill-defined left basilar opacities. Bones appear grossly intact. Right shoulder rotator cuff calcific tendinosis. IMPRESSION: Subtle ill-defined left basilar opacities are likely secondary to summation density. Airspace disease considered less likely. ACT 112: Negative or not required by law. The above report was generated using voice recognition software. It may contain grammatical, syntax or spelling errors. Electronically signed by: Miguel Castillo M.D. 09/21/2022 1:08 PM ECG Data Attestation: I personally reviewed and interpreted this ECG as follows: Indication: + SOB/dyspnea Rate (beats per minute): 79 ECG Intervals/blocks: + Normal QRS ECG ST segments: + T-wave inversions (Inferior) Change: the following changes noted (t wave inversions are present) MDM Narrative Continuous hospital monitor: Order was placed for continuous hospital monitor. Patient was placed on the hospital monitor. Patient was noted to be in normal sinus rhythm at an initial rate of 70 bpm. The patient is a 51-year-old female who presents today complaining of shortness of breath/chest tightness. Patient initially thought this was due to anxiety. She was treated here for anxiety as well as given a DuoNeb without much improvement. Labs revealed no leukocytosis, anemia or concerning electrolyte abnormalities. Troponin was not elevated. D-dimer was not elevated. Chest x- ray was unremarkable. EKG does show T wave inversions in the inferior leads which is new for the patient. A posterior EKG then performed and shows no change. Given EKG changes and chest tightness as well as her family history, I did elect to admit the patient for further cardiac testing and observation. Patient was agreeable. I discussed the case with the [facility] who agreed to evaluate patient for further care. Impression Atypical chest pain, Abnormal EKG Discharge Plan Visit Data Chief Complaint: Shortness of Breath/Dyspnea Stated Complaint: DIFFICULTY BREATHING, ASTHMA ED Provider: Gino Zepeda ED Midlevel Provider: Kanwal Ramsey Discharge Problem: Atypical chest pain, Abnormal EKG Patient Disposition: Admitted As Inpatient Discharge Instructions Interventions: ED Discharge Assessment Last Done: 09/21/22 18:14
[2022-09-21 12:24] LABS: Basophils # (auto) 0.04 K/uL (0-0.2); Basophils % (auto) 0.5 %; Eosinophils # (auto) 0.24 K/uL (0-0.50); Eosinophils % (auto) 3.2 %; Hematocrit (blood only) 41.3 % (37.0-47.0); Hemoglobin 14.8 g/dl (12.0-16.0); Immature Granulocytes # (auto) 0.02 K/uL (0.01-0.20); Immature Granulocytes % (auto) 0.3 %; Lymphocytes # (auto) 2.17 K/uL (1.2-3.4); Lymphocytes % (auto) 28.6 %; Mean Corpuscular Hemoglobin 32.8 pg (25.0-34.0); Mean Corpuscular Hgb Conc 35.8 g/dL (32.0-36.0); Mean Corpuscular Volume 91.6 fL (80.0-100.0); Mean Platelet Volume 11.8 fL (9.4-12.4); Monocytes # (auto) 0.72 K/uL (0.11-0.59); Monocytes % (auto) 9.5 %; Neutrophils # (auto) 4.39 K/uL (1.40-6.50); Neutrophils % (auto) 57.9 %; Platelet Count 239 K/uL (130-400); RDW Standard Deviation 40.1 fL (36.4-46.3); Red Blood Count 4.51 M/uL (4.20-5.40); White Blood Count 7.58 K/ul (4.8-10.8)
[2022-09-21 12:40] LABS: Alanine Aminotransferase 12 U/L (7-52); Albumin Globulin Ratio 1.6 (0.9-2); Albumin Level 4.8 gm/dl (3.4-5.0); Alkaline Phosphatase 46 U/L (34-104); Anion Gap 12 (3-11); Aspartate Aminotransferase 15 U/L (13-39); BUN Creatinine Ratio 15.6 (10-20); Bilirubin,Total 0.7 mg/dl (0.2-1.0); Blood Urea Nitrogen 14 mg/dl (6-23); Calcium 10.2 mg/dl (8.6-10.3); Carbon Dioxide 21 mmol/L (21-32); Chloride 105 mmol/L (98-107); Creatinine Clr Calc Pharmacy 57.1 ml/min; Est GFR (Non-African American) 75.1 ml/min; Glucose 84 mg/dl (70-99(Fasting)); Potassium 3.1 mmol/L (3.5-5.1); Sodium 138 mmol/L (136-145); Total Protein 7.8 gm/dl (6.0-8.3)
[2022-09-21 12:47] LABS: Troponin I High Sensitivity < 2.3 pg/ml (0-14)
[2022-09-21 12:54] LABS: D Dimer 200 ug/L FEU (0-500)
[2022-09-21] MEDS ORDERED: ALBUT/IPRATROP 3MG/0.5MG NEB 3 ML VIAL NEB STA (13:00)
--- NOTE | 2022-09-21 13:10 | XRay Report ---
XR chest 1V portable HISTORY: 51 years-old Female Dyspnea acute shortness of breath COMPARISON: 10/09/2020 TECHNIQUE: AP view of the chest FINDINGS: Cardiomediastinal and hilar silhouettes are within normal limits. No pneumothorax, pleural effusion, or pulmonary edema. Subtle ill-defined left basilar opacities. Bones appear grossly intact. Right lorenzo ulder rotator cuff calcific tendinosis. IMPRESSION: Subtle ill-defined left basilar opacities are likely secondary to summation density. Airs pace disease considered less likely. ACT 112: Negative or not required by law. The above report was generated using voice recognition software. It may contain grammatical, syntax o r spelling errors. Electronically signed by: Miguel Castillo M.D. 09/21/2022 1:08 PM
[2022-09-21 13:27] LABS: Influenza A virus by PCR Negative (Neg); Influenza B virus by PCR Negative (Neg); RSV by PCR Negative (Neg); SARS CoV2 RNA(COVID-19) Ceph NEGATIVE (Negative)
[2022-09-21] MEDS ORDERED: hydrOXYzine HCl 25 MG TAB PO STA (13:52)
[2022-09-21] MEDS ORDERED: POTASSIUM CHLORIDE CRTAB 20 MEQ TABCR PO STA ×2 (16:38→17:18)
--- NOTE | 2022-09-21 17:01 | History & Physical Report ---
Date of Service September 21, 2022 Assessment & Plan (1) Shortness of breath: Plan: This is a 51yo F with a PMH of migraine headaches, anxiety, seasonal asthma and allergies and other medical problems listed below who presents with SOB that started 2 days ago. SOB likely multi-factoral given environmental exposure to smoke with h/o seasonal asthma, this is a possible mild asthma exacerbation Anxiety also a likely factor given SOB and realization that inhaler was VSS, saturating 100% on room air, covid, flu, RSV PCR negative CXR with Subtle ill-defined left basilar opacities are likely secondary to summation density. Airspace disease considered less likely Not clinically consistent with PNA - added procal, esr, crp for completeness Continue duonebs, prednisone 20mg daily, will need refill on rescue albuterol inhaler Cont home singulair (2) Atypical chest pain: Plan: Likely driven by anxiety, SOB picture. Doubt ACS Past EKGs reviewed and T wave flattening is present in 2020 without change. HS troponin negative but will continue to trend overnight, monitor on tele Continue propranolol for h/o palpitations Repeat EKG in AM (3) Migraines: Plan: Follows with [facility]. PRN rizatriptan ordered as needed (4) Anxiety: Plan: Given dose of Clonazepam in ED, which she takes every 1-2 weeks at home. Continue as needed (5) Depression: Plan: Continue Bupropion (6) Hypokalemia: Plan: K 3.1 initially, replacing. Monitor with daily BMP DVT Ppx: SQ heparin Code status: FULL PCP: Carol Dispo: Observation med tele Patient seen in collaboration with Dr. Kramer. Please see addendum. I spent a total of 60 minutes coordinating, documenting, and providing care for this patient excluding time spent in the performance of separately billed services. History of Present Illness Chief Complaint: SOB Primary Care Provider: Meliza Medina MD This is a 51yo F with a PMH of migraine headaches, anxiety, seasonal asthma and allergies and other medical problems listed below who presents with SOB that started 2 days ago. 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 Has felt like she can't catch her breath but denies any wheezing. Tried using a rescue inhaler which she has for seasonal asthma but it did not resolve symptoms. SOB occurred intermittently and is not notably worse with exertion. Has been experiencing intermittent chest pressure that started today but not worse with exertion. Notes associated palpitations up to 120 bpm but takes propranolol for history of this. Was having coffee with her daughter this morning when she felt SOB was worsened during conversation and came to ED for further evaluation. No recent known sick contacts, no fever, chills or cough. No nausea, vomiting, abdominal pain, dysuria, diarrhea or constipation. Deals with chronic anxiety and uses Clonazepam as needed. Does not note any significant change to SOB or CP after clonazepam and albuterol treatment. Hydroxyzine helped improve chest pain, per patient. Allergies Allergy/AdvReac Type Severity Reaction Status Date / Time shellfish derived Allergy Severe SWELLING Verified 07/24/22 11:28 THROAT AND EYES AND HIVES pseudoephedrine Allergy Intermediate rash Verified 07/24/22 11:28 indomethacin AdvReac CAPS Verified 07/24/22 11:28 Home Medications Medication Instructions Recorded Confirmed Type albuterol sulfate 90 mcg/actuation 2 puffs inhalation Q4H PRN 02/17/18 09/21/22 History aerosol inhaler Shortness Of Breath epinephrine 0.3 mg/0.3 mL 0.3 mg IM Q10M PRN Allergic 02/17/18 09/21/22 History injection, auto-injector (EpiPen) Reaction montelukast 10 mg tablet 10 mg PO QAM 02/17/18 09/21/22 History ondansetron HCl 4 mg tablet 4 mg PO Q12H PRN Nausea 10/09/20 09/21/22 History trazodone 50 mg tablet 50 mg PO HS PRN Sleep 10/09/20 09/21/22 History clonazepam 1 mg tablet 1 mg PO DAILY PRN Anxiety 10 days 10/10/20 09/21/22 Rx #10 tabs propranolol 10 mg tablet 10 mg PO TID #0 tabs 10/10/20 09/21/22 Rx bupropion HCl 150 mg tablet,12 hr 150 mg PO DAILY 01/15/22 09/21/22 History sustained-release (Wellbutrin SR) hydrocodone 5 mg-acetaminophen 325 2 tab PO .COMPLEX PRN pain #10 tabs 07/24/22 09/21/22 Rx mg tablet rizatriptan 10 mg tablet (Maxalt) 10 mg PO Q2H PRN migraine headache 07/24/22 09/21/22 Rx #12 tabs methylprednisolone 4 mg tablets in 4 mg PO .COMPLEX PRN Migraine 09/21/22 09/21/22 History a dose pack (Medrol (Fred)) Headache Past Med/Surg History Medical History (Updated 09/21/22 @ 20:30 by Kanwal Ramsey PA-C) Abnormal EKG Allergic rhinitis Anxiety Bartholin gland cyst Depression Deviated septum Migraines Surgical History H/O total hysterectomy History of History of endometrial ablation Hx of appendectomy Family History Mother Heart disease Diabetes Grandfather (Maternal) , age 68 due to [place] Heart disease Aunt , age 51 due to [place] Heart disease Uncle Heart disease Social History Smoking Status: Never smoker Tobacco Type: E-cigarettes / Vaping Smoking End Date: 2019; Hx Alcohol Use: No Hx Substance Use: No Preferred Language: Austrian Communication Ability: Effective Visual Impairment: Limited Hearing Ability: Normal Armored Car Driver Required: No Beliefs That Will Affect Care: None marital status: Current Living Situation: Alone Current Living Situation Comment: lives with boyfriend current occupational status: employed current occupation: customer service at [employer] Other Information That Helps Us Care for You: No Feels Safe at Home: Yes Safety Concerns: Feels Safe At This Time Assistive Devices: None Review of Systems Review of Systems: At least ten systems reviewed and negative except as noted in the HPI. Physical Exam Physical Exam: Please see Dr. Kramer's addendum for physical exam. Results & Data Results & Data Vital Signs (Past 12 Hours) Vital Signs Temp Pulse Pulse Resp BP BP Pulse Ox 09/21/22 16:38 71 105/74 09/21/22 14:25 90 18 114/73 100 09/21/22 13:04 68 09/21/22 11:50 82 24 117/73 95 09/21/22 11:29 09/21/22 11:07 35.7 C L 91 H 20 121/61 100 O2 Del Method O2 Flow Rate 09/21/22 16:38 07/08/23 14:25 Room Air 09/21/22 13:04 09/21/22 11:50 Room Air 09/21/22 11:29 Room Air 100 09/21/22 11:07 Room Air Laboratory Results Short CBC 09/21/22 Range/Units 11:29 WBC 7.58 (4.8-10.8) K/ul Hgb 14.8 (12.0-16.0) g/dl Hct 41.3 (37.0-47.0) % Plt Count 239 (130-400) K/uL BMP 09/21/22 11:29 Sodium 138 Potassium 3.1 L Chloride 105 Carbon Dioxide 21 BUN 14 Creatinine 0.90 Glucose 84 Calcium 10.2 Liver Function 09/21/22 Range/Units 11:29 Total Bilirubin 0.7 (0.2-1.0) mg/dl AST 15 (13-39) U/L ALT 12 (7-52) U/L Alkaline Phosphatase 46 (34-104) U/L Albumin 4.8 (3.4-5.0) gm/dl Diagnostic Findings Chest X-Ray 09/21/22 12:05 XR chest 1V portable HISTORY: 51 years-old Female Dyspnea acute shortness of breath COMPARISON: 10/09/2020 TECHNIQUE: AP view of the chest FINDINGS: Cardiomediastinal and hilar silhouettes are within normal limits. No pneumothor ax, pleural effusion, or pulmonary edema. Subtle ill-defined left basilar opacities. Bones appear grossly intact. Right shoulder rotator cuff calcific tendinosis. IMPRESSION: Subtle ill-defined left basilar opacities are likely secondary to summation density. Airspace disease considered less likely. ACT 112: Negative or not required by law. The above report was generated using voice recognition software. It may contain grammatical, syntax or spelling errors. Electronically signed by: Miguel Castillo M.D. 09/21/2022 1:08 PM ECG Additional Comments: EKGs reviewed: NSR, T wave abnormality in inferior leads noted previously in EKG from 2020. No significant changes since then Supervising Physician Co-Signing Physician Notes 51-year-old woman with seasonal allergies/asthma, migraines and other medical problems who presents with shortness of breath and chest tightness. Shortness of breath started 2 nights ago. 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 This has been intermittent over the past day. She has been using her old inhaler without much relief. She reported that today shortness of breath had increased. She used an inhaler and then found out that the inhaler had from 2 years ago. She also reported having chest tightness today and felt like she could not take a deep breath. Described this as chest pressure, central chest, not referred. Denied any cough, fevers, nausea, diaphoresis, vomiting. Reports feeling better now with treatment in the ER with reported improvement in her shortness of breath. No chest pressure right now but feels like she is still cannot take a deep breath. Exam notable for General: Well hydrated, no acute distress Eyes: PERRL, conjunctivae normal, not pale, anicteric sclerae, EOM intact bilaterally ENMT: External ear and nose normal, oropharynx normal Respiratory: Normal respiratory effort, no respiratory distress, no conversational dyspnea, on room air. lungs clear to auscultation, no crackles and no wheezes Cardiovascular: RRR S1 S2 Chest (Breasts): Chest: normal inspection of chest , no chest wall tenderness Gastrointestinal (Abdomen): Abdomen is not distended, soft, non-tender to palpation, no guarding, no palpable hepatosplenomegaly, normal bowel sounds Musculoskeletal: No pedal edema Neurologic: Alert and oriented x 3, No focal weakness, sensation grossly intact Psychiatric: Alert and oriented x 3, euthymic affect, no depressed affect Labs are unremarkable. Trop is negative and DDimer is normal I reviewed CXR. Not remarkable EKG showed TWI in III and flat in avF. However, these are old as they were also present in EKG from 2020 Shortness of breath Possible exacerbation of seasonal asthma Start prednisone Continue nebs Supportive care Trend trop Tele monitor Replete hypokalemia Continue home meds Other plans as detailed by Tiffani Rajan PA-C
--- NOTE | 2022-09-21 17:25 | Communication Note ---
Date of Service: September 21, 2022 51-year-old woman with seasonal allergies/asthma, migraines and other medical problems who presents with shortness of breath and chest tightness. Shortness of breath started 2 nights ago. 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 This has been intermittent over the past day. She has been using her old inhaler without much relief. She reported that today shortness of breath had increased. She used an inhaler and then found out that the inhaler had from 2 years ago. She also reported having chest tightness today and felt like she could not take a deep breath. Described this as chest pressure, central chest, not referred. Denied any cough, fevers, nausea, diaphoresis, vomiting. Reports feeling better now with treatment in the ER with reported improvement in her shortness of breath. No chest pressure right now but feels like she is still cannot take a deep breath. Exam notable for General: Well hydrated, no acute distress Eyes: PERRL, conjunctivae normal, not pale, anicteric sclerae, EOM intact bilaterally ENMT: External ear and nose normal, oropharynx normal Respiratory: Normal respiratory effort, no respiratory distress, no conversational dyspnea, on room air. lungs clear to auscultation, no crackles and no wheezes Cardiovascular: RRR S1 S2 Chest (Breasts): Chest: normal inspection of chest , no chest wall tenderness Gastrointestinal (Abdomen): Abdomen is not distended, soft, non-tender to palpation, no guarding, no palpable hepatosplenomegaly, normal bowel sounds Musculoskeletal: No pedal edema Neurologic: Alert and oriented x 3, No focal weakness, sensation grossly intact Psychiatric: Alert and oriented x 3, euthymic affect, no depressed affect Labs are unremarkable. Trop is negative and DDimer is normal I reviewed CXR. Not remarkable EKG showed TWI in III and flat in avF. However, these are old as they were also present in EKG from 2020 Shortness of breath Possible exacerbation of seasonal asthma Start prednisone Continue nebs Supportive care Trend trop Tele monitor Replete hypokalemia Continue home meds Other plans as detailed by Tiffani Rajan PA-C
[2022-09-21 17:39] LABS: C Reactive Protein < 0.50 mg/dl (0-0.5)
[2022-09-21] MEDS ORDERED: ACETAMINOPHEN 325 MG TAB PO PRN (18:39)
[2022-09-21] MEDS ORDERED: EPINEPHrine ADULT AUTO-INJECT 0.3 MG SYR IM PRN (18:39)
[2022-09-21] MEDS ORDERED: ALBUTEROL HFA 8 GM INHALER INH PRN (18:39)
[2022-09-21] MEDS ORDERED: ONDANSETRON INJ 2 MG/ML 2 ML VIAL IV PRN (18:39)
[2022-09-21] MEDS ORDERED: POLYETHYLENE (MIRALAX) 17 GM PACK PO PRN (18:39)
[2022-09-21] MEDS ORDERED: RIZATRIPTAN BENZOATE 10 MG TAB PO PRN (18:39)
[2022-09-21] MEDS: ALBUT/IPRATROP 3MG/0.5MG NEB 3 ML VIAL NEB SCH ×2 (19:16→22:19)
[2022-09-21] MEDS: HEPARIN SOD 5,000 UNIT/0.5 ML VIAL SQ SCH (20:12)
[2022-09-21] MEDS: predniSONE 20 MG TAB PO SCH (20:13)
[2022-09-21] MEDS: MONTELUKAST SODIUM 10 MG TABLET PO SCH (20:13)
[2022-09-21] MEDS: PROPRANOLOL HCL 10 MG TAB PO SCH (20:14)
[2022-09-21] MEDS: clonazePAM 1 MG TAB PO PRN (20:18)
[2022-09-21] MEDS: traZODone HCL 50 MG TAB PO PRN (20:18)
[2022-09-22] MEDS: ALBUT/IPRATROP 3MG/0.5MG NEB 3 ML VIAL NEB SCH ×2 (02:25→07:12)
[2022-09-22] MEDS: HEPARIN SOD 5,000 UNIT/0.5 ML VIAL SQ SCH ×3 (04:18→20:43)
[2022-09-22 06:44] LABS: Hematocrit (blood only) 37.7 % (37.0-47.0); Hemoglobin 12.9 g/dl (12.0-16.0); Mean Corpuscular Hemoglobin 32.6 pg (25.0-34.0); Mean Corpuscular Hgb Conc 34.2 g/dL (32.0-36.0); Mean Corpuscular Volume 95.2 fL (80.0-100.0); Mean Platelet Volume 11.4 fL (9.4-12.4); Platelet Count 198 K/uL (130-400); RDW Standard Deviation 42.2 fL (36.4-46.3); Red Blood Count 3.96 M/uL (4.20-5.40); White Blood Count 7.05 K/ul (4.8-10.8)
--- NOTE | 2022-09-22 07:01 | Electrocardiogram Report ---
Test Reason : Blood Pressure : / mmHG Vent. Rate : 079 BPM Atrial Rate : 079 BPM P-R Int : 120 ms QRS Dur : 090 ms QT Int : 390 ms P-R-T Axes : 079 064 007 degrees QTc Int : 447 ms Normal sinus rhythm Possible Left atrial enlargement Incomplete right bundle branch block T wave abnormality, consider inferior ischemia Abnormal ECG When compared with ECG of 21-SEP-2022 11:19, (unconfirmed) No significant change was found Confirmed by German Caceres ([id number]) on 09/22/2022 7:01:14 AM Referred By: REFERRED SELF Confirmed By:Marco Antonio Caceres
--- NOTE | 2022-09-22 07:02 | Electrocardiogram Report ---
Test Reason : Blood Pressure : / mmHG Vent. Rate : 085 BPM Atrial Rate : 085 BPM P-R Int : 124 ms QRS Dur : 070 ms QT Int : 400 ms P-R-T Axes : 073 060 005 degrees QTc Int : 476 ms Normal sinus rhythm Right atrial enlargement Abnormal ECG Confirmed by German Caceres ([id number]) on 09/22/2022 7:01:30 AM Referred By: REFERRED SELF Confirmed By:Marco Antonio Caceres
--- NOTE | 2022-09-22 07:09 | Electrocardiogram Report ---
Test Reason : Blood Pressure : / mmHG Vent. Rate : 078 BPM Atrial Rate : 078 BPM P-R Int : 112 ms QRS Dur : 082 ms QT Int : 378 ms P-R-T Axes : 000 072 024 degrees QTc Int : 430 ms Ectopic atrial rhythm Otherwise normal ECG When compared with ECG of 10-OCT-2020 08:37, Ectopic atrial rhythm has replaced sinus rhythm Confirmed by German Caceres ([id number]) on 09/22/2022 7:08:49 AM Referred By: REFERRED SELF Confirmed By:Marco Antonio Caceres
--- NOTE | 2022-09-22 07:10 | Electrocardiogram Report ---
Test Reason : Blood Pressure : / mmHG Vent. Rate : 093 BPM Atrial Rate : 093 BPM P-R Int : 110 ms QRS Dur : 080 ms QT Int : 352 ms P-R-T Axes : 078 077 056 degrees QTc Int : 437 ms Sinus rhythm Otherwise normal ECG When compared with ECG of 21-SEP-2022 15:17, (unconfirmed) ST no longer depressed in Inferior leads T wave inversion no longer evident in Inferior leads Confirmed by German Caceres ([id number]) on 09/22/2022 7:09:40 AM Referred By: REFERRED SELF Confirmed By:Marco Antonio Caceres
[2022-09-22 07:28] LABS: BUN Creatinine Ratio 21.7 (10-20); Calcium 9.3 mg/dl (8.6-10.3); Creatinine Clr Calc Pharmacy 55.8 ml/min; Est GFR (African American) 84.7 ml/min; Est GFR (Non-African American) 73.1 ml/min; Potassium 4.5 mmol/L (3.5-5.1)
[2022-09-22] MEDS: predniSONE 20 MG TAB PO SCH (07:56)
[2022-09-22] MEDS: PROPRANOLOL HCL 10 MG TAB PO SCH ×3 (07:56→20:45)
[2022-09-22] MEDS: buPROPion SR 150 MG TABCR PO SCH (07:56)
[2022-09-22] MEDS: clonazePAM 1 MG TAB PO PRN ×2 (09:40→23:02)
--- NOTE | 2022-09-22 11:35 | Hospitalist Progress Note ---
Date of Service September 22, 2022 Assessment & Plan (1) Shortness of breath: (2) Atypical chest pain: Plan: 51yo F with a PMH of migraine headaches, anxiety, seasonal asthma and allergies and other medical problems listed below who presents with SOB that started 2 days ago. SOB likely multi-factoral given environmental exposure to smoke with h/o seasonal asthma, Hence possible asthma exacerbation + anxiety attacks Anxiety is also playing a huge factor. Discussion with patient revealed she has been going through some significant life changes and also coming up on the anniversary of her son's EKG noted TWI and flattening in III and aVF which are not new Trop trend are normal DDimer is normal Reviewed EKG with Meteorological Aide. No cardiac concerns TTE is unremarkable CXR with Subtle ill-defined left basilar opacities are likely secondary to summation density. Airspace disease considered less likely Continue inhaler, prednisone Cont home singulair Continue home propranolol (3) Anxiety: Plan: Continue home clonazepam Psych consulted Recs noted (4) Migraines: Plan: Follows with [facility]. PRN rizatriptan ordered as needed (5) Depression: Plan: Continue Bupropion (6) Hypokalemia: Plan: K 3.1 on admisson. Repleted K is 4.5 today DVT Ppx: SQ heparin Code status: FULL PCP: Carol Puckett spent a total of 50 minutes coordinating, documenting and providing care for this patient excluding time spent in performance of separately billed services Admission and Anticipated Discharge Date Admission Date: September 21, 2022 Subjective Patient seen and examined Was complaining of chest pain, shortness and was anxious Denied any cough, dizziness at this time Denied any nausea, vomiting, abd pain, diarrhea, fever, chills, dysuria, freq, urgency Physical Exam Constitutional: + well hydrated; no acute distress Eyes: PERRL, conjunctivae normal, anicteric sclerae ENMT: external ear and nose normal, oropharynx normal Respiratory: normal respiratory effort, lungs clear to auscultation Cardiovascular: RRR, no murmur, no edema Gastrointestinal (Abdomen): normal bowel sounds, soft, nontender, no hepatosplenomegaly Musculoskeletal: no cyanosis or clubbing, extremities motor strength 5/5 Neurologic: PERRL, EOMI, accommodation nl, no face palsy, no dysarthria Psychiatric: AOx3, anxious Results & Data Results & Data Vital Signs (Past 12 Hours) Vital Signs Temp Pulse Pulse Pulse Resp BP Pulse Ox 09/22/22 11:21 36.6 C 73 18 98/61 L 100 09/22/22 11:05 09/22/22 09:54 36.8 C 93 H 17 143/79 H 99 09/22/22 08:00 101 H 09/22/22 08:00 09/22/22 07:13 77 18 95 09/22/22 05:44 75 18 99/60 L 97 09/22/22 05:00 36.8 C 110 H 22 91/54 L 96 09/22/22 02:25 68 16 94 09/22/22 00:00 80 09/21/22 23:53 36.9 C 98 H 20 92/58 L 96 O2 Del Method 09/22/22 11:21 Room Air 09/22/22 11:05 Room Air 09/22/22 09:54 Room Air 09/22/22 08:00 09/22/22 08:00 Room Air 09/22/22 07:13 Room Air 09/22/22 05:44 Room Air 09/22/22 05:00 Room Air 09/22/22 02:25 Room Air 09/22/22 00:00 09/21/22 23:53 Room Air Laboratory Results Abnormal lab results 09/22/22 09/22/22 Range/Units 05:53 05:53 RBC 3.96 L (4.20-5.40) M/uL Carbon Dioxide 20 L (21-32) mmol/L BUN/Creatinine Ratio 21.7 H (10-20) Glucose 118 H (70-99(Fasting)) mg/dl
[2022-09-22] MEDS ORDERED: hydrOXYzine HCl 25 MG TAB PO PRN (11:53)
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
[2022-09-22] MEDS: MONTELUKAST SODIUM 10 MG TABLET PO SCH (20:46)
[2022-09-22] MEDS: traZODone HCL 50 MG TAB PO PRN (23:02)
[2022-09-23] MEDS: HEPARIN SOD 5,000 UNIT/0.5 ML VIAL SQ SCH ×3 (05:55→20:37)
[2022-09-23 06:28] LABS: Hematocrit (blood only) 36.5 % (37.0-47.0); Hemoglobin 12.4 g/dl (12.0-16.0); Mean Corpuscular Volume 97.1 fL (80.0-100.0); Mean Platelet Volume 11.2 fL (9.4-12.4); Platelet Count 173 K/uL (130-400); RDW Coefficient of Variation 12.1 % (11.5-14.5); RDW Standard Deviation 43.3 fL (36.4-46.3); Red Blood Count 3.76 M/uL (4.20-5.40); White Blood Count 7.61 K/ul (4.8-10.8)
[2022-09-23 06:51] LABS: BUN Creatinine Ratio 22.1 (10-20); Calcium 9.1 mg/dl (8.6-10.3); Creatinine Clr Calc Pharmacy 54.1 ml/min; Est GFR (African American) 81.5 ml/min; Est GFR (Non-African American) 70.3 ml/min; Magnesium 2.2 mg/dl (1.7-2.4); Phosphorus 3.8 mg/dl (2.5-4.9)
[2022-09-23] MEDS: buPROPion SR 150 MG TABCR PO SCH (07:50)
[2022-09-23] MEDS: PROPRANOLOL HCL 10 MG TAB PO SCH (07:50)
[2022-09-23] MEDS: predniSONE 20 MG TAB PO SCH (07:50)
[2022-09-23] MEDS ORDERED: SODIUM CHLORIDE 0.9% 1000ML 1,000 ML IV ONE ×2 (11:07→15:47)
[2022-09-23] MEDS ORDERED: SODIUM CHLORIDE 0.9% 1000ML 500 ML IV ONE (13:16)
--- NOTE | 2022-09-23 13:23 | Hospitalist Progress Note ---
Date of Service September 23, 2022 Assessment & Plan (1) Shortness of breath: (2) Atypical chest pain: Plan: 51yo F with a PMH of migraine headaches, anxiety, seasonal asthma and allergies and other medical problems listed below who presents with SOB that started 2 day s ago. SOB likely multi-factoral given environmental exposure to smoke with h/o seasonal asthma, Hence possible asthma exacerbation + anxiety attacks Anxiety is also playing a huge factor. Discussion with patient revealed she has been going through some significant life changes and also coming up on the anniversary of her son's On admission, EKG noted TWI and flattening in III and aVF which are not new Trop trend are normal DDimer is normal Reviewed EKG with Equity Analyst. No cardiac concerns TTE is unremarkable CXR with Subtle ill-defined left basilar opacities are likely secondary to summation density. Airspace disease considered less likely Continue inhaler, prednisone Cont home singulair (3) Hypotension: Plan: Hypotension worsened today Workup noted normal lactate, procal. Hb is reduced likely dilutional from IVF bolus earlier. Cr increased from 0.95 this morning to 1.26 Trop is normal. No new changes on EKG CXR is unremarkable Hence has VLADIMIR likely from hypotension Will give more IVF bolus Could be related to propranolol Discontinue propranolol Monitor Cortisol AM and TSH/reflex ft4 added to AMLAB. Lab notified (4) Anxiety: Plan: Continue home clonazepam Psych recs noted Was started on hydroxyzine prn per psych (5) Migraines: Plan: Follows with [facility]. PRN rizatriptan ordered as needed (6) Depression: Plan: Continue Bupropion (7) Hypokalemia: Plan: K 3.1 on admisson. Repleted K is 4 today DVT Ppx: SQ heparin Code status: FULL PCP: Carol Puckett spent a total of 50 minutes coordinating, documenting and providing care for this patient excluding time spent in performance of separately billed services Admission and Anticipated Discharge Date Admission Date: September 21, 2022 Subjective Seen and examined Patient reports feeling tired today Denied any chest pain, shortness of breath or anxiety Denied cough Reports some mild dizziness on getting up Denied any other complaints on review of systems Physical Exam Constitutional: + well hydrated; no acute distress Appears quite weak Eyes: PERRL, conjunctivae normal, anicteric sclerae ENMT: external ear and nose normal, oropharynx normal Respiratory: normal respiratory effort, lungs clear to auscultation Cardiovascular: RRR, no murmur, no edema Gastrointestinal (Abdomen): normal bowel sounds, soft, nontender, no hepatosplenomegaly Musculoskeletal: no cyanosis or clubbing, extremities motor strength 5/5 Neurologic: PERRL, EOMI, accommodation nl, no face palsy, no dysarthria Psychiatric: Alert and oriented to person, place and time but seem drowsy Results & Data Results & Data Vital Signs (Past 12 Hours) Vital Signs Temp Pulse Pulse Resp BP BP Pulse Ox 09/23/22 12:57 36.5 C 74 16 77/45 L 98 09/23/22 11:10 72/42 L 09/23/22 11:09 36.8 C 61 12 77/39 L 77/41 L 96 09/23/22 06:01 60 09/23/22 07:38 36.5 C 60 16 85/47 L 99 09/23/22 05:08 36.6 C 68 18 96/62 L 96 O2 Del Method 09/23/22 12:57 Room Air 09/23/22 11:10 09/23/22 11:09 Room Air 09/23/22 06:01 09/23/22 07:38 Room Air 09/23/22 05:08 Room Air Laboratory Results Abnormal lab results 09/23/22 09/23/22 09/23/22 Range/Units 06:04 06:04 13:47 RBC 3.76 L 3.40 L (4.20-5.40) M/uL Hgb 11.1 L (12.0-16.0) g/dl Hct 36.5 L 33.3 L (37.0-47.0) % Chloride (98-107) mmol/L BUN (6-23) mg/dl Creatinine (0.6-1.2) mg/dl BUN/Creatinine Ratio 22.1 H (10-20) Glucose (70-99(Fasting)) mg/dl Calcium (8.6-10.3) mg/dl AST (13-39) U/L Total Protein (6.0-8.3) gm/dl Globulin (2.5-4.0) gm/dl 09/23/22 Range/Units 13:47 RBC (4.20-5.40) M/uL Hgb (12.0-16.0) g/dl Hct (37.0-47.0) % Chloride 109 H (98-107) mmol/L BUN 26 H (6-23) mg/dl Creatinine 1.26 H D (0.6-1.2) mg/dl BUN/Creatinine Ratio 20.6 H (10-20) Glucose 112 H (70-99(Fasting)) mg/dl Calcium 8.5 L (8.6-10.3) mg/dl AST 10 L (13-39) U/L Total Protein 5.7 L (6.0-8.3) gm/dl Globulin 2.2 L (2.5-4.0) gm/dl
--- NOTE | 2022-09-23 13:27 | XRay Report ---
SINGLE VIEW CHEST CLINICAL HISTORY: Dyspnea. Possible airspace opacities at left lung base seen previously. FINDINGS: An AP, portable, upright chest radiograph is compared to study dated 09/21/2022. The cardiome diastinal silhouette is unremarkable. The lungs and pleural spaces are clear. No pneumothorax is seen . The bony thorax is grossly intact. Bilateral nipple piercings are noted. IMPRESSION: No active disease in the chest. ACT 112: Negative or not required by law. Electronically signed by: Ovi Silveira M.D. 09/23/2022 1:25 PM
[2022-09-23 14:07] LABS: Hematocrit (blood only) 33.3 % (37.0-47.0); Hemoglobin 11.1 g/dl (12.0-16.0); Mean Corpuscular Hemoglobin 32.6 pg (25.0-34.0); Mean Corpuscular Hgb Conc 33.3 g/dL (32.0-36.0); Mean Corpuscular Volume 97.9 fL (80.0-100.0); Mean Platelet Volume 11.6 fL (9.4-12.4); Platelet Count 149 K/uL (130-400); RDW Coefficient of Variation 12.2 % (11.5-14.5); RDW Standard Deviation 44.2 fL (36.4-46.3); White Blood Count 5.02 K/ul (4.8-10.8)
[2022-09-23 14:38] LABS: Alanine Aminotransferase 7 U/L (7-52); Albumin Globulin Ratio 1.6 (0.9-2); Albumin Level 3.5 gm/dl (3.4-5.0); Alkaline Phosphatase 34 U/L (34-104); Anion Gap 4 (3-11); Aspartate Aminotransferase 10 U/L (13-39); BUN Creatinine Ratio 20.6 (10-20); Bilirubin,Total 0.3 mg/dl (0.2-1.0); Blood Urea Nitrogen 26 mg/dl (6-23); Calcium 8.5 mg/dl (8.6-10.3); Carbon Dioxide 26 mmol/L (21-32); Chloride 109 mmol/L (98-107); Creatinine Clr Calc Pharmacy 40.8 ml/min; Est GFR (African American) 57.9 ml/min; Globulin 2.2 gm/dl (2.5-4.0); Glucose 112 mg/dl (70-99(Fasting)); Sodium 139 mmol/L (136-145); Total Protein 5.7 gm/dl (6.0-8.3); Troponin I High Sensitivity < 2.3 pg/ml (0-14)
[2022-09-23] MEDS: SODIUM CHLORIDE 0.9% 1000ML 1,000 ML IV SCH (17:50)
--- NOTE | 2022-09-23 18:14 | Electrocardiogram Report ---
Test Reason : Blood Pressure : / mmHG Vent. Rate : 112 BPM Atrial Rate : 112 BPM P-R Int : 124 ms QRS Dur : 078 ms QT Int : 312 ms P-R-T Axes : 084 073 -33 degrees QTc Int : 425 ms Sinus tachycardia Abnormal ECG When compared with ECG of 22-SEP-2022 05:48, ST now depressed in Inferior leads T wave inversion now evident in Inferior leads Confirmed by German Caceres ([id number]) on 09/23/2022 6:13:32 PM Referred By: REFERRED SELF Confirmed By:Marco Antonio Caceres
--- NOTE | 2022-09-23 18:20 | Electrocardiogram Report ---
Test Reason : Blood Pressure : / mmHG Vent. Rate : 072 BPM Atrial Rate : 072 BPM P-R Int : 106 ms QRS Dur : 086 ms QT Int : 386 ms P-R-T Axes : 055 074 049 degrees QTc Int : 422 ms Sinus rhythm Otherwise normal ECG When compared with ECG of 22-SEP-2022 08:12, (unconfirmed) Vent. rate has decreased BY [address] no longer depressed in Inferior leads T wave inversion no longer evident in Inferior leads Nonspecific T wave abnormality no longer evident in Anterolateral leads Confirmed by German Caceres ([id number]) on 09/23/2022 6:20:15 PM Referred By: REFERRED SELF Confirmed By:Marco Antonio Caceres
[2022-09-23 19:44] LABS: BUN Creatinine Ratio 25.5 (10-20); Calcium 8.6 mg/dl (8.6-10.3); Creatinine Clr Calc Pharmacy 48.4 ml/min; Est GFR (African American) 71.4 ml/min; Est GFR (Non-African American) 61.6 ml/min; Potassium 4.7 mmol/L (3.5-5.1)
[2022-09-23] MEDS: clonazePAM 1 MG TAB PO PRN (20:37)
[2022-09-23] MEDS: MONTELUKAST SODIUM 10 MG TABLET PO SCH (20:37)
[2022-09-23] MEDS: traZODone HCL 50 MG TAB PO PRN (20:37)
[2022-09-24] MEDS: SODIUM CHLORIDE 0.9% 1000ML 1,000 ML IV SCH ×2 (02:05→11:28)
[2022-09-24] MEDS: HEPARIN SOD 5,000 UNIT/0.5 ML VIAL SQ SCH ×2 (05:55→14:11)
[2022-09-24 07:25] LABS: Hematocrit (blood only) 31.8 % (37.0-47.0); Mean Corpuscular Hemoglobin 33.3 pg (25.0-34.0); Mean Corpuscular Hgb Conc 34.6 g/dL (32.0-36.0); Mean Corpuscular Volume 96.4 fL (80.0-100.0); Mean Platelet Volume 11.4 fL (9.4-12.4); Platelet Count 130 K/uL (130-400); RDW Coefficient of Variation 11.9 % (11.5-14.5); RDW Standard Deviation 41.9 fL (36.4-46.3); White Blood Count 6.93 K/ul (4.8-10.8)
[2022-09-24 07:45] LABS: BUN Creatinine Ratio 24.7 (10-20); Calcium 8.2 mg/dl (8.6-10.3); Creatinine Clr Calc Pharmacy 70.3 ml/min; Est GFR (African American) 112.1 ml/min; Est GFR (Non-African American) 96.7 ml/min; Potassium 4.1 mmol/L (3.5-5.1)
[2022-09-24] MEDS: buPROPion SR 150 MG TABCR PO SCH (08:06)
[2022-09-24] MEDS: predniSONE 20 MG TAB PO SCH (08:06)
--- NOTE | 2022-09-24 09:43 | Discharge Summary ---
Date of Service September 24, 2022 Admission HPI Per Admitting Provider This is a 51yo F with a PMH of migraine headaches, anxiety, seasonal asthma and allergies and other medical problems listed below who presents with SOB that started 2 days ago. 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 Has felt like she can't catch her breath but denies any wheezing. Tried using a rescue inhaler which she has for seasonal asthma but it did not resolve symptoms. SOB occurred intermittently and is not notably worse with exertion. Has been experiencing intermittent chest pressure that started today but not worse with exertion. Notes associated palpitations up to 120 bpm but takes propranolol for history of this. Was having coffee with her daughter this morning when she felt SOB was worsened during conversation and came to ED for further evaluation. No recent known sick contacts, no fever, chills or cough. No nausea, vomiting, abdominal pain, dysuria, diarrhea or constipation. Deals with chronic anxiety and uses Clonazepam as needed. Does not note any significant change to SOB or CP after clonazepam and albuterol treatment. Hydroxyzine helped improve chest pain, per patient. Admission Exam Per Admitting Provider General: Well hydrated, no acute distress Eyes: PERRL, conjunctivae normal, not pale, anicteric sclerae, EOM intact bilaterally ENMT: External ear and nose normal, oropharynx normal Respiratory: Normal respiratory effort, no respiratory distress, no conversational dyspnea, on room air. lungs clear to auscultation, no crackles and no wheezes Cardiovascular: RRR S1 S2 Chest (Breasts): Chest: normal inspection of chest , no chest wall tenderness Gastrointestinal (Abdomen): Abdomen is not distended, soft, non-tender to palpation, no guarding, no palpable hepatosplenomegaly, normal bowel sounds Musculoskeletal: No pedal edema Neurologic: Alert and oriented x 3, No focal weakness, sensation grossly intact Psychiatric: Alert and oriented x 3, euthymic affect, no depressed affect Principal Diagnosis Asthma exacerbation Anxiety attacks Hypotension Discharge Exam Constitutional + well hydrated; no acute distress Eyes PERRL, conjunctivae normal, anicteric sclerae ENMT external ear and nose normal, oropharynx normal Respiratory normal respiratory effort, lungs clear to auscultation Cardiovascular RRR, no murmur, no edema Gastrointestinal (Abdomen) normal bowel sounds, soft, nontender, no hepatosplenomegaly Musculoskeletal no cyanosis or clubbing, extremities motor strength 5/5 Neurologic PERRL, EOMI, accommodation nl, no face palsy, no dysarthria Discharge Data Allergies Allergy/AdvReac Type Severity Reaction Status Date / Time shellfish derived Allergy Severe SWELLING Verified 07/24/22 11:28 THROAT AND EYES AND HIVES pseudoephedrine Allergy Intermediate rash Verified 07/24/22 11:28 indomethacin AdvReac CAPS Verified 07/24/22 11:28 Consultations 09/21/22 16:38 ED Decision to Admit Stat 09/22/22 09:51 Consult Psychiatry Routine Hospital Course (1) Shortness of breath: (2) Atypical chest pain: 51yo F with a PMH of migraine headaches, anxiety, seasonal asthma and allergies and other medical problems listed below who presents with SOB that started 2 days ago. SOB likely multi-factoral given environmental exposure to smoke with h/o seasonal asthma, Hence possible asthma exacerbation + anxiety attacks Anxiety is also playing a huge factor. Discussion with patient revealed she has been going through some significant life changes and also coming up on the anniversary of her son's On admission, EKG noted TWI and flattening in III and aVF which are not new Trop trend are normal DDimer is normal Reviewed EKG with Business Process Engineer. No cardiac concerns TTE is unremarkable CXR with Subtle ill-defined left basilar opacities are likely secondary to summation density. Airspace disease considered less likely Managed with inhaler and prednisone Discharged on one more day of prednisone Continue albuterol prn. Script sent Cont home singulair (3) Hypotension: Had hypotension during admission Workup noted normal lactate, procal. Hb is reduced likely dilutional from IVF bolus earlier. Cr increased from 0.95 this morning to 1.26 Trop is normal. No new changes on EKG CXR is unremarkable Had VLADIMIR on 09/23/22 likely from hypotension Got IVF VLADIMIR resolved Could be related to propranolol Propranolol discontinued Hypotension resolved (4) Anxiety: Was evaluated by Psych inpatient Was started on hydroxyzine prn per psych (5) Migraines: Follows with [facility]. (6) Depression: Continue Bupropion (7) Hypokalemia: K 3.1 on admisson. Repleted K is 4.1 today Total Time Total Time Spent Total Time Spent (In Minutes): 35 Total Time Includes: Examination of the Patient, Discharge Planning and Medication Reconciliation Discharge Plan Discharge Items Patient Disposition: Home - Self-Care Reason For Visit: Shortness of breath, chest pain Discharge Diagnosis: Asthma exacerbation Anxiety attacks Hypotension Activity: Resume your previous activity Non-emergency contact: Primary Care Provider Call non-emergency contact if: you have any medication questions and your symptoms worsen Follow-up/Referrals: [facility] [Other] - 10/03/22 8:15 am Meliza Medina MD [Primary Care Provider] - (Date & Time 09/30/2022 2:00 PM Provider Gino Guillory MD [facility] ) Diet: Regular Addtl Attending Provider Instructions: Mrs Adair You came to the hospital for shortness of breath and chest pain. You were managed for the above listed diagnoses. Please stop taking your Propranolol for now due to hypotension episodes. Please ensure follow up with the Psychiatrist. Please use the hydroxyzine as needed for anxiety. Only use the clonazepam as needed for severe anxiety not controlled by hydroxyzine as recommended/ It was a pleasure taking care of you. Pending Studies at Discharge: No Stand-Alone Forms: My [facility] [employer], Smoking Cessation Medications and DC Order Prescriptions: New prednisone 20 mg Tablet 20 mg PO DAILY Qty: 1 0RF hydroxyzine HCl 25 mg Tablet 25 mg PO Q6H PRN (Reason: anxiety) Qty: 120 0RF Continued montelukast 10 mg tablet 10 mg PO QAM epinephrine [EpiPen] 0.3 mg/0.3 mL auto-injector 0.3 mg IM Q10M PRN (Reason: Allergic Reaction) bupropion HCl [Wellbutrin SR] 150 mg tablet sustained-release 12 hr 150 mg PO DAILY rizatriptan [Maxalt] 10 mg tablet 10 mg PO Q2H MDD 30 mg PRN (Reason: migraine headache) Qty: 12 5RF hydrocodone-acetaminophen 5-325 mg tablet 2 tab PO .COMPLEX PRN (Reason: pain) Qty: 10 0RF Rx Instructions: 2 tab PO EVERY 4-6 HOURS NEEDED PRN; trazodone 50 mg tablet 50 mg PO HS PRN (Reason: Sleep) ondansetron HCl 4 mg tablet 4 mg PO Q12H PRN (Reason: Nausea) clonazepam 1 mg tablet 1 mg PO DAILY PRN (Reason: Anxiety) 10 Days Qty: 10 0RF methylprednisolone [Medrol (Fred)] 4 mg tablets,dose pack 4 mg PO .COMPLEX PRN (Reason: Migraine Headache) Rx Instructions: 4 mg orally take as directed; albuterol sulfate 90 mcg/actuation HFA aerosol inhaler 2 puffs INH Q4H PRN (Reason: Shortness Of Breath) Qty: 8.5 0RF Discontinued propranolol 10 mg tablet 10 mg PO TID Qty: 0 0RF Discharge Orders: Discharge Order (Routine); Ordered 09/24/22 Ordered By: Mahi Kramer Admission Data Admit Date/Time: 09/23/22 13:23 Attending Provider: Mahi Kramer I. Admit Provider: Mahi Kramer I. Primary Care Provider: Meliza Medina Other Providers: Mahi Kramer I. ; Dinah Cohen ; Naomi Griffin ; Elliot Pabon
== END 2022-09-24 16:45 | disposition home or self-care (01) | DRG 202 ==
LOC: ED 10:55 → 2W 10:55